=== PATIENT | female | born 1945 | race Caucasian/White ===

== ENCOUNTER 2017-08-30 11:43 | Emergency (ER) | payer MEDICARE, OTHER ==
[~2017-08-30] VITALS: Ht 167.6 cm; Wt 64.4 kg
--- NOTE | 2017-08-30 12:09 | ED Head Injury ---
General Chief Complaint: Head/Cervical Problems Stated Complaint: FALL/HEAD INJURY Source: patient, family Exam Limitations: no limitations History of Present Illness Date Seen by Provider: Aug 30, 2017 Time Seen by Provider: 12:05 Initial Comments Patient is a 70-year-old female who presents to the emergency room with complaints of a left sided head laceration from a fall just prior to arrival. She states that she was walking through her bed room and caught her foot on a rug causing her to trip and fall. She is unsure what she hit her head on the thinks it was the corner post on the bed frame. She is unsure if she had loss of consciousness but does not think she did. She does have a 4.5 centimeter laceration to the left side of her scalp just above her left ear. She denies any pain at this time. Occurred: just prior to arrival Severity: mild Location: parietal Method of Injury: fell Loss of Consciousness: unsure Associated Systoms: Denies Symptoms Allergies and Home Medications Allergies Coded Allergies: No Known Drug Allergies (Unverified , 08/30/17) Home Medications Aspirin 81 Mg Tablet.dr, 81 MG PO DAILY, (Reported) Patient Home Medication List Home Medication List Reviewed: Yes Review of Systems Constitutional: no symptoms reported, see HPI; No dizziness, No weakness Eyes: See HPI; Denies Blindness, Denies Blurred Vision, Denies Drainage, Denies Decreased Acuity Ears, Nose, Mouth, Throat: no symptoms reported Respiratory: see HPI; No cough, No dyspnea on exertion, No short of breath, No wheezing Cardiovascular: see HPI; No chest pain, No edema Gastrointestinal: see HPI; No abdominal pain, No constipation, No vomiting Genitourinary: see HPI; No decreased output, No discharge Musculoskeletal: see HPI; No back pain, No gout, No joint pain Skin: see HPI, other (laceration to the scalp) Psychiatric/Neurological: See HPI; Denies Anxiety, Denies Depressed Endocrine: See HPI; Denies Excessive Sweating, Denies Flushing Hematologic/Lymphatic: See HPI; Denies Anemia All Other Systems Reviewed Negative Unless Noted: Yes Past Ofdlvdz-Gkksid-Mpawky Hx Past Med/Social Hx: Reviewed Nursing Past Med/Soc Hx Patient Social History Recent Foreign Travel: No Contact w/Someone Who Travel: No Family Medical History Reviewed Nursing Family Hx Physical Exam Vital Signs Vital Signs - First Documented 08/30/17 08/30/17 11:55 14:03 Temp 97.1 Pulse 80 Resp 18 B/P (MAP) 139/69 (92) Pulse Ox 93 O2 Delivery Room Air Capillary Refill : Height, Weight, BMI Height: '" Weight: lbs. oz. kg; BMI Method: General Appearance: WD/WN, no apparent distress HEENT: PERRL/EOMI, normal ENT inspection, TMs normal, pharynx normal Neck: non-tender, full range of motion, supple, normal inspection Cardiovascular: regular rate, rhythm, no edema, no gallop, no JVD, no murmur Respiratory: chest non-tender, lungs clear, normal breath sounds, no respiratory distress, no accessory muscle use Gastrointestinal: normal bowel sounds, non tender, soft, no organomegaly, no pulsatile mass Back: normal inspection, no CVA tenderness, no vertebral tenderness Extremities: normal range of motion, non-tender, normal inspection, no pedal edema, no calf tenderness Psychiatric: alert, oriented x 3 Crainal Nerves: normal hearing, normal speech, PERRL Coordination/Gait: normal finger to nose, normal gait Motor/Sensory: no motor deficit, no sensory deficit Skin: normal color, other (there is a 4.5 cm linear laceration to the left side of the patient's head.) Rosio Coma Score Best Eye Response: (4) Open Spontaneously Best Verbal Response: (5) Oriented Best Motor Response: (6) Obeys Commands [place] Total: 15 Images 1 - Laceration 4.5 cm in length Procedures/Interventions Wound Location: Scalp Other Wound Location Left parietal scalp. Wound Length (cm): 4.5 Wound's Depth, Shape: superficial, linear Wound Explored: clean Irrigated w/ Saline (ccs): 200 Volume Anesthetic (ccs): 4 Wound Debrided: minimal Staple Repair: Stapler 35W (10 guero) Progress The area was anesthetized with approximate 4 mL of 1% lidocaine without epi. The area was then irrigated with approximately 200 mL of normal saline and Betasept. The area was closed with 10 guero. Progress/Results/Core Measures Results/Orders My Orders Medications Given in ED Vital Signs/I&O Progress Progress Note : Time: 13:31 Progress Note Patient reports that she is up-to-date on her tetanus vaccine. She was informed of a normal CT head and neck other than degenerative changes that she was aware of. She agrees with complains of discharge and return back to the emergency room for any concerns as needed and close follow-up with her physician. Diagnostic Imaging Diagonstic Imaging: CT Plain Films/CT/US/NM/MRI: c-spine, head Comments [facility] [place], [place] NAME: VIVIANE GOMEZ [facility] REC#: [id number] PT STATUS: REG ER : 1945 PHYSICIAN: BERTO VIVAR ADMIT DATE: 08/30/17/ER Draft Date of Exam:08/30/17 CT HEAD/CERVICAL SPINE WO PROCEDURE: CT head and CT cervical spine without contrast. TECHNIQUE: Multiple contiguous axial images were obtained through the brain and cervical spine without the use of intravenous contrast. Sagittal and coronal reformations through the cervical spine were then performed. INDICATION: Fall with head and neck injury. COMPARISON: No prior studies are available for comparison. CT HEAD: Ventricles and sulci are appropriate for the patient's age. There is some prominent CSF density along the frontal convexities bilaterally suggestive of mild bilateral frontal lobe atrophy. No sulcal effacement, midline shift, or hemorrhage is detected. The cisterns are patent. The visualized paranasal sinuses are clear. IMPRESSION: No acute intracranial process is detected. CT CERVICAL SPINE: There is mild reversal of the normal cervical lordotic curvature. There is minimal retrolisthesis of C4 on C5 and C5 on C6. Minimal anterolisthesis of C2 on C3 is seen. There is severe multilevel degenerative disc disease with significant disc space narrowing and marginal spurring from the C3-4 through the C6-7 levels. No definite fracture is identified. Odontoid is intact. IMPRESSION: Cervical spondylosis. No acute bony abnormality is detected. Dictated on workstation # [id number] Dict: 08/30/17 1244 Trans: 08/30/17 1251 [id number] Interpreted by: NANCY BALDWIN MD Electronically signed by: Reviewed: Reviewed by Me Departure Impression Primary Impression: Contusion of head Qualified Codes: S00.03XA - Contusion of scalp, initial encounter Additional Impression: Scalp laceration Qualified Codes: S01.01XA - Laceration without foreign body of scalp, initial encounter Disposition: HOME, SELF-CARE Condition: Stable/Unchanged Departure-Patient Inst. Decision time for Depature: 13:23 Referrals: DAVID BECERRIL MD (PCP/Family) Primary Care Physician Patient Instructions: Closed Head Injury, Head Injury Observation (DC), Laceration Repair With Guero (DC) Add. Discharge Instructions: Follow-up with your doctor within 1 week for recheck. Return back to the emergency room in 7-10 days for staple removal. Watch for signs of infection such as increased pain, redness, drainage. You may shower normally but do not take a bath, or submerge your head in any kind of body water. Return back to the emergency room for any signs of infection, increased pain, dizziness, confusion, nausea and vomiting. All discharge instructions reviewed with patient and/or family. Voiced understanding. BERTO VIVAR Aug 30, 2017 12:08
[2017-08-30] MEDS ORDERED: LIDOCAINE 1% INJ 20 ML 20 ML VIAL INJ ONE (12:15)
[2017-08-30] MEDS ORDERED: LOVA20TA2 (12:17)
[2017-08-30] MEDS ORDERED: ASPI-586 PO (12:17)
[2017-08-30] MEDS ORDERED: OMEP40CA36 (12:17)
[2017-08-30] MEDS ORDERED: SULF500T PO (12:17)
--- NOTE | 2017-08-30 12:51 | Diagnostic Imaging Report ---
PROCEDURE: CT head and CT cervical spine without contrast. TECHNIQUE: Multiple contiguous axial images were obtained through the brain and cervical spine without the use of intravenous contrast. Sagittal and coronal reformations through the cervical spine were then performed. INDICATION: Fall with head and neck injury. COMPARISON: No prior studies are available for comparison. CT HEAD: Ventricles and sulci are appropriate for the patient's age. There is some prominent CSF density along the frontal convexities bilaterally suggestive of mild bilateral frontal lobe atrophy. No sulcal effacement, midline shift, or hemorrhage is detected. The cisterns are patent. The visualized paranasal sinuses are clear. IMPRESSION: No acute intracranial process is detected. CT CERVICAL SPINE: There is mild reversal of the normal cervical lordotic curvature. There is minimal retrolisthesis of C4 on C5 and C5 on C6. Minimal anterolisthesis of C2 on C3 is seen. There is severe multilevel degenerative disc disease with significant disc space narrowing and marginal spurring from the C3-4 through the C6-7 levels. No definite fracture is identified. Odontoid is intact. IMPRESSION: Cervical spondylosis. No acute bony abnormality is detected. Dictated by: Dictated on workstation # [id number]
[2017-08-30] MEDS ORDERED: HYDROcodone/APAP 5 MG/325 MG (LORTAB) TAB PO ONE (14:00)
[2017-08-30 14:03] VITALS: BP 139/69
== END 2017-08-30 14:04 | disposition home or self-care (01) ==
LOC: ER 11:47
DX: S01.01XA Laceration without foreign body of scalp, initial encounter (principal); R40.2142 Coma scale, eyes open, spontaneous, at arrival to emergency department; R40.2252 Coma scale, best verbal response, oriented, at arrival to emergency department; R40.2362 Coma scale, best motor response, obeys commands, at arrival to emergency department; Z79.82 Long term (current) use of aspirin; W01.190A Fall on same level from slipping, tripping and stumbling with subsequent striking against furniture, initial encounter
CPT/HCPCS: 12002; 70450; 72125

== ENCOUNTER → 2017-11-18 | Outpatient (CLI) | payer MEDICARE ==
[~2017-11-18] MED LIST: ASPI-586 PO; LOVA20TA2; OMEP40CA36; SULF500T PO
[2017-11-18 08:32] LABS: BASOPHILS % (AUTO) 1 % (0-10); EOSINOPHILS # (AUTO) 0.2 10^3/uL (0.0-0.3); EOSINOPHILS % (AUTO) 4 % (0-10); HEMATOCRIT 40 % (35-52); HEMOGLOBIN 13.4 G/DL (11.5-16.0); LYMPHOCYTES # (AUTO) 1.3 X 10^3 (1.0-4.0); LYMPHOCYTES % (AUTO) 33 % (12-44); MEAN CORPUSCULAR HEMOGLOBIN 28 PG (25-34); MEAN CORPUSCULAR HGB CONC 33 G/DL (32-36); MEAN CORPUSCULAR VOLUME 83 FL (80-99); MEAN PLATELET VOLUME 9.6 FL (7.4-10.4); MONOCYTES # (AUTO) 0.6 X 10^3 (0.0-1.0); MONOCYTES % (AUTO) 14 % (0-12); NEUTROPHILS # (AUTO) 1.9 X 10^3 (1.8-7.8); NEUTROPHILS % (AUTO) 49 % (42-75); PLATELET COUNT 300 10^3/uL (130-400); RED BLOOD COUNT 4.85 10^6/uL (4.35-5.85); RED CELL DISTRIBUTION WIDTH 14.1 % (10.0-14.5)
[2017-11-18 08:57] LABS: ALANINE AMINOTRANSFERASE 30 U/L (0-55); ALBUMIN 3.9 GM/DL (3.2-4.5); ALKALINE PHOSPHATASE 54 U/L (40-136); BILIRUBIN,TOTAL 0.7 MG/DL (0.1-1.0); BUN/CREATININE RATIO 33; CALCIUM 9.5 MG/DL (8.5-10.1); CARBON DIOXIDE 24 MMOL/L (21-32); CHLORIDE 109 MMOL/L (98-107); CHOLESTEROL 144 MG/DL (< 200); CREATININE SERUM 0.58 MG/DL (0.60-1.30); GFR ESTIMATED > 60; GLUCOSE 104 MG/DL (70-105); HDL CHOLESTEROL 45 MG/DL (40-60); POTASSIUM 3.9 MMOL/L (3.6-5.0); SODIUM 141 MMOL/L (135-145); TOTAL PROTEIN 6.8 GM/DL (6.4-8.2); TRIGLYCERIDES 120 MG/DL (<150); VLDL CHOLESTEROL 24 MG/DL (5-40)
== END ==
LOC: LAB 08:15
PROVIDERS: ATTEND Nurse Practitioner Family
DX: E78.5 Hyperlipidemia, unspecified (principal); M81.0 Age-related osteoporosis without current pathological fracture; G35 Multiple sclerosis
CPT/HCPCS: 36415; 80053; 80061; 82306; 84443; 85025

== ENCOUNTER → 2018-04-14 | Outpatient (CLI) | payer MEDICARE ==
[2018-04-14 14:27] LABS: BASOPHILS % (AUTO) 0 % (0-10); EOSINOPHILS # (AUTO) 0.2 10^3/uL (0.0-0.3); EOSINOPHILS % (AUTO) 4 % (0-10); HEMATOCRIT 38 % (35-52); HEMOGLOBIN 12.5 G/DL (11.5-16.0); LYMPHOCYTES # (AUTO) 1.6 X 10^3 (1.0-4.0); LYMPHOCYTES % (AUTO) 33 % (12-44); MEAN CORPUSCULAR HEMOGLOBIN 28 PG (25-34); MEAN CORPUSCULAR HGB CONC 33 G/DL (32-36); MEAN CORPUSCULAR VOLUME 86 FL (80-99); MEAN PLATELET VOLUME 9.5 FL (7.4-10.4); MONOCYTES # (AUTO) 0.4 X 10^3 (0.0-1.0); MONOCYTES % (AUTO) 9 % (0-12); NEUTROPHILS # (AUTO) 2.7 X 10^3 (1.8-7.8); NEUTROPHILS % (AUTO) 54 % (42-75); PLATELET COUNT 285 10^3/uL (130-400); RED CELL DISTRIBUTION WIDTH 15.9 % (10.0-14.5); WHITE BLOOD COUNT 4.9 10^3/uL (4.3-11.0)
[2018-04-14 14:39] LABS: ALANINE AMINOTRANSFERASE 20 U/L (0-55); ALBUMIN 3.9 GM/DL (3.2-4.5); ALKALINE PHOSPHATASE 94 U/L (40-136); BILIRUBIN,TOTAL 0.2 MG/DL (0.1-1.0); BUN/CREATININE RATIO 35; CALCIUM 9.1 MG/DL (8.5-10.1); CARBON DIOXIDE 25 MMOL/L (21-32); CHLORIDE 110 MMOL/L (98-107); CREATINE KINASE 59 U/L (29-168); CREATININE SERUM 0.71 MG/DL (0.60-1.30); GFR ESTIMATED > 60; GLUCOSE 91 MG/DL (70-105); MAGNESIUM 2.4 MG/DL (1.8-2.4); SODIUM 142 MMOL/L (135-145); TOTAL PROTEIN 6.8 GM/DL (6.4-8.2)
[2018-04-14 14:45] LABS: CREATINE KINASE MB 0.8 NG/ML (<6.6)
== END ==
LOC: CARD 13:56
PROVIDERS: ATTEND Nurse Practitioner Family
DX: R07.9 Chest pain, unspecified (principal); M79.602 Pain in left arm
CPT/HCPCS: 36415; 80053; 82550; 82553; 83735; 84484; 85025; 93005

== ENCOUNTER → 2018-09-24 | Outpatient (CLI) | payer MEDICARE | LOC: RAD 14:48 | PROVIDERS: ATTEND Nurse Practitioner Family | DX: Z12.31 Encounter for screening mammogram for malignant neoplasm of breast (principal) | CPT/HCPCS: 77067 ==

== ENCOUNTER → 2019-04-14 | Outpatient (CLI) | payer MEDICARE ==
[~2019-04-14] MED LIST changes: +GADOBUTROL 10 MMOL/10 ML (GADAVIST) VIAL IV ONE; +OMEP40CA27; -OMEP40CA36
--- NOTE | 2019-04-14 10:55 | Diagnostic Imaging Report ---
Clinical indication: Patient with history multiple sclerosis since 1971. Patient's MRI double vision problems. Exam: MRI of the brain performed without and with 6 cc of Gadavist IV contrast. Sequences include axial DWI, ADC map, coronal gradient echo, axial T2, axial FLAIR, sagittal FLAIR, axial T1, axial T1 post IV contrast, coronal T1 fat-sat post IV contrast, and sagittal T1 post IV contrast. Comparison: Head CT without contrast dated 08/30/2017.. Findings: There is no evidence of acute cerebral infarct, intracranial hemorrhage, or gross mass effect. There is no abnormal contrast enhancement. The brain parenchymal volume appears appropriate for patient's age. There are multiple focal, patchy and ovoid areas of high T2 signal white matter changes involving the white matter posterior hemispheres, periventricular regions, and septal callosal regions. There is normal najera-white matter distinction. There is no significant midline shift or herniation. The [place] vascular structures show no gross abnormality as visualized. The pituitary gland, sella, and suprasellar regions are unremarkable as visualized. There is no evidence of hydrocephalus. The basal cisterns are unremarkable. The skull, extracranial soft tissue, and orbits are unremarkable. There is minimal mucosal thickening involving ethmoid sinus. Temporal bones show no significant abnormality. IMPRESSION: 1: There are multiple focal, patchy and ovoid areas of high T2 signal white matter changes involving both cerebral hemispheres, periventricular regions, and callosal septal regions. There is no associated IV contrast enhancement. The appearance and pattern of these high T2 signal lesions correlate to patient's history of multiple sclerosis. 2: Age-related brain parenchymal changes. Dictated by: Dictated on workstation # [id number]
== END ==
LOC: RAD 08:52
PROVIDERS: ATTEND Family Medicine
DX: G93.89 Other specified disorders of brain (principal); R90.82 White matter disease, unspecified; Z86.69 Personal history of other diseases of the nervous system and sense organs
CPT/HCPCS: 70553

== ENCOUNTER 2019-08-25 05:31 | Outpatient (RCR) | payer MEDICARE ==
[~2019-08-25] VITALS: Ht 162.6 cm; Wt 63.6 kg
[~2019-08-25 05:31] MED LIST changes: +ALEN70TA5 PO; +CHOL200014 PO; -GADOBUTROL 10 MMOL/10 ML (GADAVIST) VIAL IV ONE; +LEVO75TA6 PO; -LOVA20TA2; +LOVA20TA2 PO; +MAGN250T2 PO; -OMEP40CA27; +OMEP40CA27 PO
== END 2019-08-25 10:20 | disposition home or self-care (01) ==
LOC: PREOP 05:31
PROVIDERS: ATTEND Internal Medicine
DX: Z01.812 Encounter for preprocedural laboratory examination (principal); K51.80 Other ulcerative colitis without complications; Z20.828 Contact with and (suspected) exposure to other viral communicable diseases
CPT/HCPCS: 87635

== ENCOUNTER → 2019-08-28 | Day surgery (SDC) | payer MEDICARE ==
--- NOTE | 2019-08-17 09:49 | HISTORY AND PHYSICAL ---
DATE OF SERVICE: COLONOSCOPY HISTORY AND PHYSICAL HISTORY OF PRESENT ILLNESS: The patient is a 73-year-old white female presenting for diagnostic colonoscopy due to recent positive Cologuard. She has had past history of colonoscopies with polyp removal and was hoping to avoid another colonoscopy as long as her Cologuard was negative, but unfortunately this was not the case. She denies any change in bowel habits, abdominal pain, melena, bright red blood per rectum, change in weight, appetite or energy level. So she was surprised by her results. She came with pictures of her last colonoscopy done in 11/2016, which revealed unremarkable photos and she reports no polyps were found or removed at that time. She is not aware of any family history for colon cancer, but she does report a past history of ulcerative colitis for which she has not required medication for many years and for which there has been no evidence for inflammatory change on her last several colonoscopies. There is reported over 30-year history that presented without diarrhea, but did present with some mild tenesmus and rectal bleeding. She did not know the extent of her past inflammatory colonic changes. PAST MEDICAL HISTORY: Significant for Graves' disease, which required I-131 ablation in 09/2018. She is now on thyroid replacements. She has a history of osteoarthritis that she uses topical Voltaren gel for, hyperlipidemia with no known history for coronary artery disease and osteoporosis. MEDICATIONS ON ADMISSION: Include Voltaren gel topically 3 times a day, L-thyroxine 100 mcg daily, omeprazole 40 mg daily for reflux symptoms, magnesium 250 mg 2 tablets daily that she takes for constipation, Vitamin D 1000 units daily, lovastatin 20 mg daily, baby aspirin 81 mg daily, alendronate 70 mg daily. SOCIAL HISTORY: She has past [id number] smoking history, quit 10 years ago. She has no drinking history. She is retired and . FAMILY HISTORY: Father in his 70s secondary to a stroke. Mother of heart disease and hyperlipidemia and osteoporosis. Has one sister with history of hyperlipidemia and arthritis. Several other second degree relatives have had strokes. REVIEW OF SYSTEMS: CONSTITUTIONAL: She denies night sweats, chills, fever or change in weight. PULMONARY: She denies cough, wheezing, or shortness of breath. CARDIOVASCULAR: She denies dyspnea on exertion, orthopnea, PND, pedal edema or chest discomfort. GASTROINTESTINAL: As noted in the HPI. PHYSICAL EXAMINATION: GENERAL: Reveals a well-appearing white female in no acute distress. HEENT: Unremarkable. No evidence for pallor. VITAL SIGNS: Blood pressure 126/78, heart rate 70 and regular. CHEST: Clear to auscultation. CARDIOVASCULAR: Reveals a regular rate and rhythm without murmur, S3 or S4. ABDOMEN: Soft, supple without mass, organomegaly or tenderness. No bruits noted. EXTREMITIES: Reveal no cyanosis, clubbing or edema. ASSESSMENT AND PLAN: The patient was set up for diagnostic colonoscopy due to a positive Cologuard. Statistics in regards to neoplasia versus overt cancer and false negative issues were discussed with the patient. Her electronic medical record was reviewed. Over 45 minutes face to face care time spent. Prep instructions with the Suprep kit were given and questions were answered. I thank you for the referral of this pleasant lady. Job ID: [id number] DocumentID: [id number] Dictated Date: 08/06/2019 18:23:52 Insurance Broker Date: 08/06/2019 19:32:54 Dictated By: JEANINE GRAVES MD
[~2019-08-28] VITALS: Ht 162.6 cm; Wt 63.6 kg
[~2019-08-28] MED LIST changes: +D5 LR IV SOLUTION 1,000 ML IV ONE; +D5 LR IV SOLUTION 1,000 ML IV PRN; +LIDOCAINE JELLY 2% 6 ML SYRINGE MM PRN; +MIDAZOLAM 5 MG/5 ML (VERSED) VIAL IV PRN; +fentaNYL INJECTION 100 MCG/2 ML AMP IVP ONE; +proPOfol 200 MG/20 ML (DIPRIVAN) VIAL IV ONE
[2019-08-28 08:40] VITALS: BP 172/79
--- NOTE | 2019-08-28 08:57 | Pre-Op Note & Conscious Sedat ---
Pre-Operative Progress Note H&P Reviewed The H&P was reviewed, patient examined and no changes noted. Date H&P Reviewed: Aug 28, 2019 Time H&P Reviewed: 08:56 Conscious Sedation Pre-Proced ASA Score 2 For ASA 3 and 4: Consider anesthesia and medical clearance. Also, for patients with a history of failed moderate sedation consider anesthesia. Airway Lungs Heart ASA score ASA 1: a normal healthy patient ASA 2: a patient with a mild systemic disease (mid diabetes, controlled hypertension, obesity ASA 3: a patient with a severe systemic disease that limits activity (angina, COPD, prior Myocardial infarction) ASA 4: a patient with an incapacitating disease that is a constant threat to life (CHF, renal failure) ASA 5: a moribund patient not expected to survive 24 hrs. (ruptured aneurysm) ASA 6: a declared brain- patient whose organs are being harvested. For emergent operations, add the letter E after the classification Mallampati Classification Grade 2 Sedation Plan Analgesia, Amnesia, Plan communicated to team members, Discussed options with patient/fam, Discussed risks with patient/fam The patient is an appropriate candidate to undergo the planned procedure, sedation, and anesthesia. The patient immediately re-assessed prior to indication. JEANINE GRAVES MD Aug 28, 2019 08:57
[2019-08-28 10:30] VITALS: BP 131/65
[2019-08-28 10:35] VITALS: BP 146/62
--- NOTE | 2019-08-28 10:50 | Anesthesia-General Post-Op ---
MAC Patient Condition Mental Status/LOC: Same as Preop Cardiovascular: Satisfactory Nausea/Vomiting: Absent Respiratory: Satisfactory Pain: Controlled Complications: Absent Post Op Complications Complications None Follow Up Care/Instructions Patient Instructions None needed. Anesthesiology Discharge Order Discharge Order Patient is doing well, no complaints, stable vital signs, no apparent adverse anesthesia problems. ORIANA HERNANDEZ DO Aug 28, 2019 10:50
--- OUTSIDE RECORDS SUMMARY | 2019-08-28 12:37 | XMS REPORT ---
Author Author Delia WHATLEY Organization [facility] Address [address] [place] [address] Care Team Providers Care Testing Manager Name Role Phone MANUEL WHATLEY Unavailable PROBLEMS Unknown Problems ALLERGIES No Known Allergies ENCOUNTERS Encounter Location Date Diagnosis [facility] [address] [facility] [id number] [place] [address] Apr, Sore throat J02.9 and Nasoph aryngitis acute J00 IMMUNIZATIONS No Known Immunizations SOCIAL HISTORY Never Assessed REASON FOR VISIT sore throat/ear ache Pt c/o scratchy throat for a couple of day and L ear irrit ation as well, states she has been exposed to strep ARIELA Santana PLAN OF CARE Activity Details Follow Up prn Reason: VITAL SIGNS Weight 145.0 lbs 2017-05-15 Temperature 98.9 degrees Fahrenheit 2017-05-15 Heart Rate 76 bpm 2017-05-15 Respiratory Rate 18 2017-05-15 Blood pressure systolic 124 mmHg 2017-05-15 Blood pressure diastolic 76 mmHg 2017-05-15 MEDICATIONS Medication Instructions Dosage Frequency Start Date End Date Duration S tatus Lovastatin 10 MG Orally Once a day 1 tablet with a meal 24h Active Aspirin 81 81 MG Orally Once a day 1 tablet 24h Active Multivitamin Adult - Act torres RESULTS Name Result Date Reference Range STREP A (IN HOUSE) 2017-05-15 STREP A negative Control + Lot # [id number] Exp date 2019-11-30 PROCEDURES Procedure Date Ordered Result Body Site STREP A ASSAY W/OPTIC May 15, 2017 INSTRUCTIONS MEDICATIONS ADMINISTERED No Known Medications
--- OUTSIDE RECORDS SUMMARY | 2019-08-28 12:37 | XMS REPORT | CCD ---
Author Author Delia Cintron Organization Palua Cintron MD, [facility] Address [address] [place] [address] Phone Care Team Providers Care Legislative Advocate Name Role Phone PP Unavailable CCM Unavailable Summary Purpose Interface Exchange Insurance Providers Payer name Policy type / Coverage type Covered republican ID Effective Begin Date Effective End Date [employer] Commercial Insurance [id number] 2017 Unknown Family history Father Diagnosis Age At Onset Stroke Unknown Mother Diagnosis Age At Onset Hyperlipidemia Unknown Arthritis Unknown Osteoporosis Unknown Sister Diagnosis Age At Onset Hyperlipidemia Unknown Arthritis Unknown Social History Social History Element Codes Description Effective Dates Marital status Unknown W idowed 08/06/[address]: 6858293 Quit over 10 years ago 08/06/[address]: 491996985 Never drinks alcohol 08/06/2017 Allergies, Adverse Reactions, Alerts Substance Reaction Codes Entered Date Inactivated Date Status * NO KNOWN DRUG ARIANA RGIES Unknown 11/26/2017 No Inactive Date Active Past Medical History Illness Codes Condition Status Onset Date Resolved Date Encounter for genera l adult medical examination without abnormal findings ICD-9: V70.9 ICD-10: Z00.00 Active 04/14/2018 Unknown Other chest pain ICD-9: 786.59 ICD-10: R07.89 Active 04/14/2018 Unknown Pain in left arm ICD-9: 729.5 ICD-10: M79.602 Active 04/14/2018 Unknown Age-related osteopor osis without current pathological fracture ICD-9: 733.00 ICD-10: M81.0 Active 08/06/2017 Unknown Chronic thyroiditis with transient thyrotoxicosis ICD-9: 245.8 ICD-10: E06.2 Active 11/26/2017 Unknown Mixed hyperlipidemia ICD-9: 272.2 ICD-10: E78.2 Active 08/06/2017 Unknown Obstructive sleep ap cynthia (adult) (pediatric) ICD-9: 327.23 ICD-10: G47.33 Active 08/06/2017 Unknown Localized edema ICD-9: 782.3 ICD-10: R60.0 Active 10/08/2017 Unknown Multiple sclerosis ICD- 9: 340 ICD-10: G35 Active 10/08/2017 Unknown Concussion with loss of consciousness of 30 minutes or less, initial encounter ICD-9: 850.11 ICD-10: S06.0X1A Active 09/10/2017 Unknown Encounter for remova l of sutures ICD-9: V58.32 ICD-10: Z48.02 Active 09/10/2017 Unknown Laceration without f oreign body of scalp, initial encounter ICD-9: 873.0 ICD-10: S01.01XA Active 09/10/2017 Unknown Problems Condition Codes Effectiv e Dates Condition Status Encounter for genera l adult medical examination without abnormal findings ICD-9: V70.9 ICD-10: Z00.00 04/14/2018 Active Other chest pain ICD-9: 786.59 ICD-10: R07.89 04/14/2018 Active Pain in left arm ICD-9: 729.5 ICD-10: M79.602 04/14/2018 Active Age-related osteopor osis without current pathological fracture ICD-9: 733.00 ICD-10: M81.0 08/06/2017 Active Chronic thyroiditis with transient thyrotoxicosis ICD-9: 245.8 ICD-10: E06.2 11/26/2017 Active Mixed hyperlipidemia ICD-9: 272.2 ICD-10: E78.2 08/06/2017 Active Obstructive sleep ap cynthia (adult) (pediatric) ICD-9: 327.23 ICD-10: G47.33 08/06/2017 Active Localized edema ICD-9: 782.3 ICD-10: R60.0 10/08/2017 Active Multiple sclerosis ICD- 9: 340 ICD-10: G35 10/08/2017 Active Concussion with loss of consciousness of 30 minutes or less, initial encounter ICD-9: 850.11 ICD-10: S06.0X1A 09/10/2017 Active Encounter for remova l of sutures ICD-9: V58.32 ICD-10: Z48.02 09/10/2017 Active Laceration without f oreign body of scalp, initial encounter ICD-9: 873.0 ICD-10: S01.01XA 09/10/2017 Active Medications Medication Codes Instruc tions Start Date Stop Date Sta tus Fill Instructions omeprazole 40 mg cap shireen,delayed release RxNorm: 20020329 1 Capsule(s) PO BID 08/04/2018 07/29/2019 Ac tive lovastatin 20 mg tablet RxNorm: 937918 1 Tablet(s) PO daily 08/04/2018 07/29/2019 Active alendronate 70 mg ta blet RxNorm: 304594 1 Tablet(s) PO QW 08/04/2018 07/29/2019 Active prednisone 20 mg tablet RxNorm: 447493 2 Tablet(s) PO daily 10/08/2017 10/12/2017 Inactive alendronate 70 mg ta blet RxNorm: 529824 1 Tablet(s) PO QW 09/10/2017 08/03/2018 Inactive omeprazole 40 mg cap shireen,delayed release RxNorm: 282183 1 Capsule(s) PO BID 09/10/2017 08/03/2018 In active methimazole 10 mg ta blet RxNorm: 735352 2 Tablet(s) PO daily managed by endocrinology No Start Date Active magnesium 250 mg tablet RxNorm: 2 Tablet(s) PO daily No Start Date Active Multiple Vitamin-Min erals tablet RxNorm: 1 Tablet(s) PO daily No Start Date Active Vitamin D3 1,000 uni t tablet RxNorm: 597194 1 Tablet(s) PO daily No Start Date Active aspirin 81 mg tablet ,delayed release RxNorm: 476734 1 Tablet(s) PO daily No Start Date Active omeprazole 40 mg cap shireen,delayed release RxNorm: 380813 1 Capsule(s) PO daily No Start Date 09/09/2017 Inactive propranolol 80 mg ta blet RxNorm: 771494 1 Tablet(s) PO daily managed by cardiology No Start Date 08/03/2018 Inactive lovastatin 20 mg tablet RxNorm: 639287 1 Tablet(s) PO daily No Start Date 08/03/2018 Inactive alendronate 70 mg ta blet RxNorm: 946276 1 Tablet(s) PO QW No Start Date 09/09/2017 Inactive Medication Administered No Medication Administered data Immunizations Vaccine Codes Date Status Influenza CVX: 141 02/06 completed Assessments Condition Codes Effectiv e Dates Other chest pain ICD-10: R07.89 ICD-9: 786.59 04/14/2018 Pain in left arm ICD-10: M79.602 ICD-9: 729.5 04/14/2018 Encounter for general adult medical exam ination without abnormal findings ICD-10: Z00.00 ICD-9: V70.9 04/14/2018 Chronic thyroiditis with transient thyrotoxicosis ICD-10: E06.2 ICD-9: 245.8 02/12/2018 Mixed hyperlipidemia ICD-10: E78.2 ICD-9: 272.2 02/12/2018 Localized edema ICD-10: R60.0 ICD-9: 782.3 10/08/2017 Multiple sclerosis ICD-10: G35 ICD-9: 340 10/08/2017 Concussion with loss of consciousness of 30 minutes or less, initial encounter ICD-10: S06.0X1A ICD-9: 850.11 09/10/2017 Laceration without foreign body of scalp, initial enco unter ICD-10: S01.01XA ICD-9: 873.0 09/10/2017 Encounter for removal of sutures ICD -10: Z48.02 ICD-9: V58.32 09/10/2017 Obstructive sleep apnea (adult) (pediatric) ICD-10: G47.33 ICD-9: 327.23 08/06/2017 Age-related osteoporosis without current pathological fracture ICD-10: M81.0 ICD-9: 733.00 08/06/2017 Reason For Visit Reason For Visit Effective Dates Notes arm pain 04/14/2018 hyperlipidemia 02/12/2018 hyperthyroidism 11/26/2017 shortness of breath 10/08/2017 Hospital Follow Up 09/10/2017 ~generic 08/06/2017 [facility] Results Observation Observation Code Item Item Code Result Date Thyroid Antibodies 303447 THYROGLOBULIN ANTIBODY . 11/27/2017 Thyroid Antibodies 901946 THYROGLOBULIN ANTIBODY 11 IU/mL 11/27/2017 Thyroid Antibodies 923264 THYROID PEROXIDASE (TPO) AB . 11/27/2017 Thyroid Antibodies 187177 THYROID PEROXIDASE (TPO) AB 155 IU/mL 11/27/2017 Tsh Ord6 TSH (3rd IS) 0.00 uIU/mL 11/25/2017 Free T4 Qht763 FREE T4 3.45 ng/dL 11/25/2017 Vitamin D 25 Oh [id number] VITAMIN D, 25 HYDROXY 42.13 ng/mL 08/06/2017 Review of Systems System Result Effective Dates Constitutional No recent illness 04/14/2018 Constitutional No chills 04/14/2018 Constitutional No fever 04/14/2018 Eyes No eye erythema Ears/Nose/Throat/Neck No nasal discharge 04/14/2018 Cardiovascular chest pain/pressure 04/14/2018 Cardiovascular No dyspnea 04/14/2018 Respiratory No cough Respiratory No dyspnea 0 04/14/2018 Musculoskeletal joint complaint 04/14/2018 Neurologic No alteration of consciousness 04/14/2018 Neurologic No mental status change 04/14/2018 Gastrointestinal gastroesophageal reflux 04/14/2018 Constitutional No recent illness 02/12/2018 Constitutional No chills 02/12/2018 Constitutional No malaise 02/12/2018 Eyes No vision change Gastrointestinal No abdominal pain 02/12/2018 Gastrointestinal No constipation 02/12/2018 Gastrointestinal No diarrhea 02/12/2018 Gastrointestinal No gastroesophageal reflu x 02/12/2018 Gastrointestinal No nausea 02/12/2018 Gastrointestinal No vomiting 02/12/2018 Constitutional No fever 02/12/2018 Constitutional No diaphoresis 02/12/2018 Ears/Nose/Throat/Neck No nasal allergies 02/12/2018 Ears/Nose/Throat/Neck No nasal discharge 02/12/2018 Cardiovascular No chest pain/pressure 02/12/2018 Cardiovascular No dyspnea 02/12/2018 Respiratory No dyspnea 1 04/15/2017 Respiratory No cough Respiratory No chest congestion 02/12/2018 Musculoskeletal No joint complaint 02/12/2018 Dermatologic No rash Neurologic No alteration of consciousness 02/12/2018 Neurologic No mental status change 02/12/2018 Constitutional recent illness 11/26/2017 Constitutional No anorexia 11/26/2017 Constitutional night sweats 11/26/2017 Constitutional No chills 11/26/2017 Constitutional No diaphoresis 11/26/2017 Constitutional fatigue 1 Constitutional No fever 11/26/2017 Constitutional No insomnia 11/26/2017 Constitutional No malaise 11/26/2017 Constitutional weight loss 11/26/2017 Constitutional No weight gain 11/26/2017 Eyes No eye discharge Eyes No eye erythema 10/2017 Ears/Nose/Throat/Neck No dizziness 11/26/2017 Ears/Nose/Throat/Neck No headache 11/26/2017 Cardiovascular No chest pain/pressure 11/26/2017 Cardiovascular exercise intolerance 11/26/2017 Cardiovascular fatigue 1 Cardiovascular palpitations 11/26/2017 Respiratory No productive sputum 11/26/2017 Respiratory dyspnea on exertion 11/26/2017 Gastrointestinal No abdominal pain 11/26/2017 Gastrointestinal No constipation 11/26/2017 Gastrointestinal No diarrhea 11/26/2017 Genitourinary/Nephrology No dysuria 11/26/2017 Musculoskeletal No joint complaint 11/26/2017 Dermatologic No rash 10/2017 Neurologic No alteration of consciousness 11/26/2017 Psychiatric No depression 11/26/2017 Endocrine No dry or coarse skin 11/26/2017 Endocrine sweating 11/26 Constitutional No recent illness 10/08/2017 Constitutional fatigue 0 10/08/2017 Psychiatric No anxiety 0 10/08/2017 Gastrointestinal No abdominal pain 10/08/2017 Gastrointestinal No constipation 10/08/2017 Gastrointestinal No diarrhea 10/08/2017 Dermatologic No rash Dermatologic No sores Neurologic weakness 09/19 Constitutional No recent illness 08/06/2017 Constitutional No chills 08/06/2017 Constitutional No fatigue 08/06/2017 Constitutional No fever 08/06/2017 Constitutional No insomnia 08/06/2017 Constitutional No malaise 08/06/2017 Eyes No vision change Ears/Nose/Throat/Neck No dental pain 08/06/2017 Ears/Nose/Throat/Neck No dizziness 08/06/2017 Ears/Nose/Throat/Neck No dysphagia 08/06/2017 Ears/Nose/Throat/Neck No headache 08/06/2017 Ears/Nose/Throat/Neck No hearing loss 08/06/2017 Ears/Nose/Throat/Neck No nasal allergies 08/06/2017 Ears/Nose/Throat/Neck No sore throat 08/06/2017 Ears/Nose/Throat/Neck No postnasal drip 08/06/2017 Ears/Nose/Throat/Neck No sinus congestion 08/06/2017 Cardiovascular No chest pain/pressure 08/06/2017 Cardiovascular No dyspnea 08/06/2017 Cardiovascular No edema 08/06/2017 Cardiovascular No exercise intolerance 08/06/2017 Cardiovascular No fatigue 08/06/2017 Cardiovascular No near-syncope/dizziness 08/06/2017 Respiratory No chest tightness 08/06/2017 Respiratory No cough Respiratory No dyspnea 0 08/06/2017 Respiratory No pedal edema 08/06/2017 Gastrointestinal No abdominal pain 08/06/2017 Gastrointestinal No constipation 08/06/2017 Gastrointestinal No diarrhea 08/06/2017 Gastrointestinal No gastroesophageal reflu x 08/06/2017 Gastrointestinal No nausea 08/06/2017 Gastrointestinal No vomiting 08/06/2017 Genitourinary/Nephrology No dysuria 08/06/2017 Genitourinary/Nephrology No nocturia 08/06/2017 Genitourinary/Nephrology No urinary incontinence 08/06/2017 Musculoskeletal No stiffness 08/06/2017 Musculoskeletal No swelling 08/06/2017 Musculoskeletal No muscle weakness 08/06/2017 Musculoskeletal No myalgias 08/06/2017 Dermatologic No rash Dermatologic No sores Neurologic No dizziness 08/06/2017 Neurologic No headache 0 08/06/2017 Neurologic No neck pain 08/06/2017 Neurologic No syncope Psychiatric No anxiety 0 08/06/2017 Psychiatric No depression 08/06/2017 Physical Exam Exam Name System Name It em Name Status Result Effective Dates Notes Full Exam - Orthopedics Constitutional general appearance Overall: well nourished 04/14/2018 None Full Exam - Orthopedics Constitutional general appearance Overall: well developed 04/14/2018 None Full Exam - Orthopedics Constitutional general appearance Overall: in no acute distress 04/14/2018 None Full Exam - Orthopedics Eyes conjunctiva/eyelids Overall: conjunctiva clear 04/14/2018 None Full Exam - Orthopedics Eyes conjunctiva/eyelids Overall: eyelids normal 04/14/2018 None Full Exam - Orthopedics Ears/Nose/Throat lips/teeth/gingiva Overall: benign lips 04/14/2018 None Full Exam - Orthopedics Ears/Nose/Throat oral cavity/pharynx/larynx Overall: oral mucosa clear 04/14/2018 None Full Exam - Orthopedics Respiratory respiratory effort/rhythm Overall: no retractions 04/14/2018 None Full Exam - Orthopedics Respiratory respiratory effort/rhythm Overall: normal rate 04/14/2018 None Full Exam - Orthopedics Psychiatric orientation/consciousness Overall: oriented to person, place and time 04/14/2018 None Full Exam - Orthopedics Psychiatric mood and affect Overall: normal mood and affect 04/14/2018 None Full Exam - Orthopedics Psychiatric appearance Overall: well-groomed, good eye contact 04/14/2018 None Full Exam - Orthopedics MS: head/neck insp & palp - H/N Overall: head atraumatic 04/14/2018 None Full Exam - Orthopedics MS: left upp er extremity insp & palp - LUE Upper arm: normal appearance 04/14/2018 None Full Exam - General 1994 Constitutional general appearance Hygiene/Attention to Grooming: good hygiene 02/12/2018 None Full Exam - General 1994 Eyes conjunctiva/eyelids Overall: conjunctiva clear 02/12/2018 None Full Exam - General 1994 Eyes conjunctiva/eyelids Overall: cornea clear 02/12/2018 None Full Exam - General 1994 Eyes conjunctiva/eyelids Overall: eyelids normal 02/12/2018 None Full Exam - General 1994 Eyes pupils and irises Overall: pupils equal, round, reactive to light and accomodation 02/12/2018 None Full Exam - General 1994 Ears/Nose/Throat otoscopic exam Overall: external auditory canals clear 02/12/2018 None Full Exam - General 1994 Ears/Nose/Throat otoscopic exam Overall: tympanic membranes clear 02/12/2018 None Full Exam - General 1994 Ears/Nose/Throat lips/teeth/gingiva Overall: benign lips 02/12/2018 None Full Exam - General 1994 Ears/Nose/Throat oral cavity/pharynx/larynx Overall: oral mucosa clear 02/12/2018 None Full Exam - General 1994 Ears/Nose/Throat oral cavity/pharynx/larynx Overall: oropharyngeal mucosa clear 02/12/2018 None Full Exam - General 1994 Respiratory auscultation Overall: breath sounds clear bilaterally 02/12/2018 None Full Exam - General 1994 Respiratory respiratory effort/rhythm Overall: no retractions 02/12/2018 None Full Exam - General 1994 Respiratory respiratory effort/rhythm Overall: normal rate 02/12/2018 None Full Exam - General 1994 Cardiovascular extremities Overall: no clubbing 02/12/2018 None Full Exam - General 1994 Cardiovascular auscultation of heart Overall: regular rate 02/12/2018 None Full Exam - General 1994 Cardiovascular auscultation of heart Overall: normal heart sounds 02/12/2018 None Full Exam - General 1994 Abdomen abdominal exam Overall: no tenderness 02/12/2018 None Full Exam - General 1994 Abdomen abdominal exam Overall: normal bowel sounds 02/12/2018 None Full Exam - General 1994 Lymphatic neck nodes Overall: anterior cervical chain benign 02/12/2018 None Full Exam - General 1994 Lymphatic neck nodes Overall: posterior cervical chain benign 02/12/2018 None Full Exam - General 1994 Musculoskeletal spine, ribs and pelvis Overall: good posture 02/12/2018 None Full Exam - General 1994 Musculoskeletal head and neck Overall: head atraumatic 02/12/2018 None Full Exam - General 1994 Neurologic cranial nerves Overall: crainial nerves 2 - 12 grossly intact 02/12/2018 None Full Exam - General 1994 Psychiatric orientation/consciousness Overall: oriented to person, place and time 02/12/2018 None Full Exam - General 1994 Psychiatric mood and affect Overall: normal mood and affect 02/12/2018 None Full Exam - General 1994 Constitutional general appearance Overall: well developed 02/12/2018 None Full Exam - General 1994 Constitutional general appearance Overall: in no acute distress 02/12/2018 None Full Exam - General 1994 Constitutional general appearance Overall: well nourished 02/12/2018 None Full Exam - General 1994 Musculoskeletal gait and station Overall: normal station 02/12/2018 None Full Exam - General 1994 Musculoskeletal gait and station Overall: normal gait 02/12/2018 None Full Exam - General 1994 Constitutional general appearance Development: well developed 11/26/2017 None Full Exam - General 1994 Constitutional general appearance Development: appears stated age 1011/26/2017 None Full Exam - General 1994 Respiratory auscultation Overall: breath sounds clear bilaterally 11/26/2017 None Full Exam - General 1994 Respiratory respiratory effort/rhythm Overall: no retractions 11/26/2017 None Full Exam - General 1994 Respiratory respiratory effort/rhythm Overall: normal rate 11/26/2017 None Full Exam - General 1994 Cardiovascular extremities Overall: no clubbing 11/26/2017 None Full Exam - General 1994 Cardiovascular auscultation of heart Overall: regular rate 11/26/2017 None Full Exam - General 1994 Cardiovascular auscultation of heart Overall: normal heart sounds 11/26/2017 None Full Exam - General 1994 Cardiovascular auscultation of heart Overall: no murmurs 11/26/2017 None Full Exam - General 1994 Abdomen abdominal exam Overall: no tenderness 11/26/2017 None Full Exam - General 1994 Abdomen abdominal exam Overall: normal bowel sounds 11/26/2017 None Full Exam - General 1994 Musculoskeletal gait and station Overall: normal gait 11/26/2017 None Full Exam - General 1994 Musculoskeletal gait and station Overall: normal station 11/26/2017 None Full Exam - General 1994 Neurologic gait Overall: no ataxia, no unsteadiness 11/26/2017 None Full Exam - General 1994 Neurologic cranial nerves Overall: crainial nerves 2 - 12 grossly intact 11/26/2017 None Full Exam - General 1994 Psychiatric orientation/consciousness Overall: oriented to person, place and time 11/26/2017 None Full Exam - General 1994 Psychiatric mood and affect Overall: normal mood and affect 11/26/2017 None Full Exam - General 1994 Psychiatric mood and affect Mood: happy 11/26/2017 None Full Exam - General 1994 Ears/Nose/Throat otoscopic exam Overall: external auditory canals clear 11/26/2017 None Full Exam - General 1994 Integument inspection of skin Overall: few scattered moles, no gross abnormalities 11/26/2017 None Full Exam - General 1994 Neck thyroid Size: enlarged right lobe 11/26/2017 None Full Exam - General 1994 Constitutional general appearance Development: well developed 10/08/2017 None Full Exam - General 1994 Constitutional general appearance Development: appears stated age 0810/08/2017 None Full Exam - General 1994 Respiratory auscultation Overall: breath sounds clear bilaterally 10/08/2017 None Full Exam - General 1994 Respiratory respiratory effort/rhythm Overall: normal rate 10/08/2017 None Full Exam - General 1994 Respiratory respiratory effort/rhythm Overall: no retractions 10/08/2017 None Full Exam - General 1994 Cardiovascular auscultation of heart Overall: regular rate 10/08/2017 None Full Exam - General 1994 Cardiovascular auscultation of heart Overall: normal heart sounds 10/08/2017 None Full Exam - General 1994 Cardiovascular auscultation of heart Overall: no murmurs 10/08/2017 None Full Exam - General 1994 Cardiovascular extremities Overall: no clubbing 10/08/2017 None Full Exam - General 1994 Psychiatric orientation/consciousness Overall: oriented to person, place and time 10/08/2017 None Full Exam - General 1994 Psychiatric mood and affect Mood: happy 10/08/2017 None Full Exam - General 1994 Psychiatric mood and affect Overall: normal mood and affect 10/08/2017 None Full Exam - General 1994 Neurologic cranial nerves Overall: crainial nerves 2 - 12 grossly intact 10/08/2017 None Full Exam - General 1994 Neurologic gait Overall: no ataxia, no unsteadiness 10/08/2017 None Full Exam - General 1994 Abdomen abdominal exam Overall: no tenderness 10/08/2017 None Full Exam - General 1994 Abdomen abdominal exam Overall: normal bowel sounds 10/08/2017 None Full Exam - General 1994 Musculoskeletal gait and station Overall: normal station 10/08/2017 None Full Exam - General 1994 Musculoskeletal gait and station Overall: normal gait 10/08/2017 None Full Exam - General 1994 Cardiovascular extremities Edema present: pitting 10/08/2017 trace Full Exam - General 1994 Constitutional general appearance Development: well developed 08/06/2017 None Full Exam - General 1994 Constitutional general appearance Development: appears stated age 0608/06/2017 None Full Exam - General 1994 Constitutional general appearance Hygiene/Attention to Grooming: good hygiene 08/06/2017 None Full Exam - General 1994 Eyes conjunctiva/eyelids Overall: conjunctiva clear 08/06/2017 None Full Exam - General 1994 Eyes conjunctiva/eyelids Overall: cornea clear 08/06/2017 None Full Exam - General 1994 Eyes conjunctiva/eyelids Overall: eyelids normal 08/06/2017 None Full Exam - General 1994 Eyes pupils and irises Overall: pupils equal, round, reactive to light and accomodation 08/06/2017 None Full Exam - General 1994 Ears/Nose/Throat otoscopic exam Overall: external auditory canals clear 08/06/2017 None Full Exam - General 1994 Ears/Nose/Throat otoscopic exam Overall: tympanic membranes clear 08/06/2017 None Full Exam - General 1994 Ears/Nose/Throat lips/teeth/gingiva Overall: benign lips 08/06/2017 None Full Exam - General 1994 Ears/Nose/Throat lips/teeth/gingiva Overall: normal dentition 08/06/2017 None Full Exam - General 1994 Ears/Nose/Throat oral cavity/pharynx/larynx Overall: oral mucosa clear 08/06/2017 None Full Exam - General 1994 Ears/Nose/Throat oral cavity/pharynx/larynx Overall: oropharyngeal mucosa clear 08/06/2017 None Full Exam - General 1994 Ears/Nose/Throat oral cavity/pharynx/larynx Overall: hypopharynx benign 08/06/2017 None Full Exam - General 1994 Ears/Nose/Throat oral cavity/pharynx/larynx Overall: no masses 08/06/2017 None Full Exam - General 1994 Respiratory auscultation Overall: breath sounds clear bilaterally 08/06/2017 None Full Exam - General 1994 Respiratory respiratory effort/rhythm Overall: no retractions 08/06/2017 None Full Exam - General 1994 Respiratory respiratory effort/rhythm Overall: normal rate 08/06/2017 None Full Exam - General 1994 Cardiovascular extremities Overall: no clubbing 08/06/2017 None Full Exam - General 1994 Cardiovascular auscultation of heart Overall: regular rate 08/06/2017 None Full Exam - General 1994 Cardiovascular auscultation of heart Overall: normal heart sounds 08/06/2017 None Full Exam - General 1994 Abdomen abdominal exam Overall: no tenderness 08/06/2017 None Full Exam - General 1994 Abdomen abdominal exam Overall: normal bowel sounds 08/06/2017 None Full Exam - General 1994 Lymphatic neck nodes Overall: anterior cervical chain benign 08/06/2017 None Full Exam - General 1994 Lymphatic neck nodes Overall: posterior cervical chain benign 08/06/2017 None Full Exam - General 1994 Musculoskeletal spine, ribs and pelvis Overall: spine benign 08/06/2017 None Full Exam - General 1994 Musculoskeletal spine, ribs and pelvis Overall: sacroiliac joint benign 08/06/2017 None Full Exam - General 1994 Musculoskeletal spine, ribs and pelvis Overall: good posture 08/06/2017 None Full Exam - General 1994 Musculoskeletal head and neck Overall: head atraumatic 08/06/2017 None Full Exam - General 1994 Musculoskeletal head and neck Overall: cervical spine benign 08/06/2017 None Full Exam - General 1994 Integument inspection of skin Overall: few scattered moles, no gross abnormalities 08/06/2017 None Full Exam - General 1994 Neurologic deep tendon reflexes Overall: deep tendon reflexes intact 08/06/2017 None Full Exam - General 1994 Neurologic cranial nerves Overall: crainial nerves 2 - 12 grossly intact 08/06/2017 None Full Exam - General 1994 Psychiatric orientation/consciousness Overall: oriented to person, place and time 08/06/2017 None Full Exam - General 1994 Psychiatric mood and affect Overall: normal mood and affect 08/06/2017 None Procedures No Procedures data Vital Signs Date Vital 04/14/2018 Blood Pressure 1: 110/48 Code: 8480-6 BMI: 22.4 Code: 76845-0 Heart Rate 1: 70 bpm Height: 5'6" SpO2: 98% Weight: 139 lbs 02/12/2018 Blood Pressure 1: 130/72 Code: 8480-6 BMI: 21.6 Code: 53181-5 Heart Rate 1: 88 bpm Height: 5'6" SpO2: 98% Weight: 134 lbs 11/26/2017 Blood Pressure 1: 140/72 Code: 8480-6 BMI: 21.6 Code: 05299-7 Heart Rate 1: 96 bpm Height: 5'6" SpO2: 97% Weight: 134 lbs 10/08/2017 Blood Pressure 1: 160/86 Code: 8480-6 Blood Pressure 1: 142/64 Code: 8480-6 Blood Pressure 1: 132/68 Code: 8480-6 BMI: 23.1 Code: 25876-6 Heart Rate 1: 99 bpm Height: 5'6" SpO2: 94% Weight: 143 lbs 09/10/2017 Blood Pressure 1: 128/88 Code: 8480-6 BMI: 22.9 Code: 54347-0 Heart Rate 1: 84 bpm Height: 5'6" SpO2: 95% Weight: 142 lbs 08/06/2017 Blood Pressure 1: 134/74 Code: 8480-6 BMI: 23.4 Code: 02425-2 Heart Rate 1: 68 bpm Height: 5'6" Weight: 145 lbs Functional Status No Functional Status data History of Present Illness Symptom Name Status Resu lt Effective Date Notes Location left arm 04/14/2018 None Quality dull pain 04/14/2018 None Quality constant 04/14/2018 None Onset and Resolution g radual in onset 04/14/2018 None Onset of Symptom 2 wee ks ago 04/14/2018 None Frequency of Episodes daily 04/14/2018 None Onset and Resolution o ngoing 02/12/2018 None Onset of Symptom durin g adulthood 02/12/2018 None Severity moderate 02/12/2018 None Quality chronic 02/12/2018 None Significant Family History hyperlipidemia 02/12/2018 None Quality chronic 02/12/2018 None Onset and Resolution o ngoing 02/12/2018 None abnormal test results Abnormal Indicator abnormal 11/26/2017 None abnormal test results Repeated Abnor mal Results 1 11/26/2017 None abnormal test results Type of Test(s) TSH, Free T4 11/26/2017 None abnormal test results Test Performed on 11/18/17 and 11/25/17 11/26/2017 None hyperthyroidism Location at the level of the thyroid 11/26/2017 None hyperthyroidism Quality acute 11/26/2017 None hyperthyroidism Quality worsening 11/26/2017 None hyperthyroidism Onset and Resolution ongoing 11/26/2017 None hyperthyroidism Severity moderate with clinical signs present 11/26/2017 None hyperthyroidism Frequency of Episodes increasing 11/26/2017 None hyperthyroidism Triggers no known associated factors 11/26/2017 None hyperthyroidism Pertinent Findings Denies diplopia 11/26/2017 None hyperthyroidism Pertinent Findings Denies hair loss 11/26/2017 None hyperthyroidism Pertinent Findings palpitations 11/26/2017 None hyperthyroidism Pertinent Findings weight loss 11/26/2017 None shortness of breath Quality breathlessness 10/08/2017 None shortness of breath Onset and Resolution sudden in onset 10/08/2017 None shortness of breath Onset of Symptom 2 weeks ago 10/08/2017 None dizziness Quality interm ittent 10/08/2017 None dizziness Onset and Resolution sudden in onset 10/08/2017 None dizziness Onset of Symptom 2 weeks ago 10/08/2017 None Hospital Follow Up _ pain 09/10/2017 None Hospital Follow Up Quality intermittent 09/10/2017 None Hospital Follow Up Onset and Resolution ongoing 09/10/2017 None Hospital Follow Up Onset of Symptom 11 days ago 09/10/2017 None Hospital Follow Up Pertinent Findings Denies pain 09/10/2017 None hyperlipidemia Onset and Resolution ongoing 08/06/2017 None hyperlipidemia Onset of Symptom during adulthood 08/06/2017 None hyperlipidemia Severity moderate 08/06/2017 None hyperlipidemia Quality c hronic 08/06/2017 None hyperlipidemia Significant Family History hyperlipidemia 08/06/2017 None Advance Directives No Advance Directive data Encounters Encounter Performer Loca tion Codes Date 33427 EST. PATIENT, LEVEL III Diagnosis: Pain in left arm[ICD10: M79.602] Diagnosis: Other chest pain[ICD10: R07.89] Diagnosis: Encounter for general adult medical examination without abnormal findings[ICD10: Z00.00] [facility] CPT-4: 55228 04/14/2018 ([id number]) PER PM REEVA L EST PAT 65+ YR Diagnosis: Mixed hyperlipidemia[ICD10: E78.2] Diagnosis: Chronic thyroiditis with transient thyrotoxicosis[ICD10: E06.2] [facility] CPT-4: 83930 02/12/2018 ([id number]) 76644 EST. P ATIENT, LEVEL III Diagnosis: Chronic thyroiditis with transient thyrotoxicosis[ICD10: E06.2] [facility] CPT-4: 10265 11/26/2017 ([id number]) 00893 EST. P ATIENT, LEVEL III Diagnosis: Multiple sclerosis[ICD10: G35] Diagnosis: Localized edema[ICD10: R60.0] Paula Cintron MD, [facility] CPT-4: 68989 10/08/2017 ([id number]) 10527 EST. P ATIENT, LEVEL III Diagnosis: Concussion with loss of consciousness of 30 minutes or less, initial encounter[ICD10: S06.0X1A] Diagnosis: Laceration without foreign body of scalp, initial encounter[ICD10: S01.01XA] Diagnosis: Encounter for removal of sutures[ICD10: Z48.02] Paula Cintron MD, [facility] CPT-4: 70821 09/10/2017 ([id number]) OFFICE VISI T, NEW - LEVEL 4 Diagnosis: Mixed hyperlipidemia[ICD10: E78.2] Diagnosis: Age-related osteoporosis without current pathological fracture[ICD10: M81.0] Diagnosis: Obstructive sleep apnea (adult) (pediatric)[ICD10: G47.33] Paula [facility]intron [facility] CPT-4: 10671 08/06/2017 Plan of Care Planned Activity Notes C odes Status Date Visit Plan: Left arm pain, chest pa in - will check EKG and labs - The pt is to use prn antiinflammatories to manage acute pain. The patient is to call the office if the pain is worsening or does not improve. 04/14/2018 Visit Plan: Left arm pain, chest pa in - will check EKG and labs - The pt is to use prn antiinflammatories to manage acute pain. The patient is to call the office if the pain is worsening or does not improve. 04/14/2018 Appointment: Sayra Malone WPtel: [address] [place], [place] [phone] (15 min) Moderate 04/14/2018 Patient Education: Patient Medication Summary Completed 04/14/2018 Visit Plan: Hyperthyroid - defer to endocrinology Hyperlipidemia - pt has been counseled about appropriate diet, exercise, and need for low fat food choices. I have discussed the need for the patient to take medications as prescribed. If the patient has negative side effects from the medication, they are to CALL the office and not abruptly discontinue the medication without discussion with a practitioner in the office. We will check labs in 3-6 months for follow up on the patient's chronic medical problem and to assure normal liver response to medications. 02/12/2018 Visit Plan: Hyperthyroid - defer to endocrinology Hyperlipidemia - pt has been counseled about appropriate diet, exercise, and need for low fat food choices. I have discussed the need for the patient to take medications as prescribed. If the patient has negative side effects from the medication, they are to CALL the office and not abruptly discontinue the medication without discussion with a practitioner in the office. We will check labs in 3-6 months for follow up on the patient's chronic medical problem and to assure normal liver response to medications. 02/12/2018 Appointment: Sayra Malone WPtel: [phone] [facility] [place] (30 min) Complex 02/12/2018 Patient Education: Patient Medication Summary Completed 02/12/2018 Patient Education: Cholesterol Management Completed 02/12/2018 Visit Plan: Hyperthyroidism -rajni t wants to see Dr Contreras -will schedule thyroid ultrasound for further evaluation 11/26/2017 Appointment: Eusebia Metcalf WPtel: [phone] [phone] [place] (15 min) Moderate 11/26/2017 Patient Education: Patient Medication Summary Completed 11/26/2017 Care Plan: Referral Order SNOMED-CT : 646834099 Pending 11/26/2017 Appointment: Paula Cintron WPtel: [phone] [facility] [place] (15 min) Moderate 11/11/2017 Visit Plan: Multiple sclerosis - rx for prednisone - recommended pt to call if symptoms worsen. Edema - pt has been advised to elevate legs to prevent dependent edema, compression has been recommended to help to naturally decrease peripheral edema. Diuretic use has been discussed and pt has been instructed in appropriate use of such medication as necessary to further attempt to reduce peripheral edema. 10/08/2017 Appointment: Paula Cintron WPtel: [phone] [facility] [place] (15 min) Moderate 10/08/2017 Patient Education: Patient Medication Summary Completed 10/08/2017 Visit Plan: Concussion - recommende d pt to let me know if her headaches improve or if her symptoms worsen. [facility] removed today - #10 valerie. 09/10/2017 Appointment: Paula Cintron WPtel: [facility] (15 min) Moderate 09/10/2017 Patient Education: Patient Medication Summary Completed 09/10/2017 Visit Plan: Hyperlipidemia - pt has been counseled about appropriate diet, exercise, and need for low fat food choices. I have discussed the need for the patient to take medications as prescribed. If the patient has negative side effects from the medication, they are to CALL the office and not abruptly discontinue the medication without discussion with a practitioner in the office. We will check labs in 3-6 months for follow up on the patient's chronic medical problem and to assure normal liver response to medications. Sleep apnea - pt has been using for a year - feels like it does help. Osteoporosis - - pt on alendronate - need to check vitamin D level 08/06/2017 Appointment: Paula Cintron WPtel: [facility] New Patient 08/06/2017 Patient Education: Patient Medication Summary Completed 08/06/2017 Referral: Janelle Contreras 11/26 Re ferral info faxed. Patient informed that they will contact her with the appt. Appointment Requested Referral: Janelle Contreras Referral Appointment Requested Instructions Comment thyroid ultrasound . Hyperthyroidism -patient wants to see Dr Contreras -will schedule thyroid ultrasound for further evaluation . Concussion - recom mended pt to let me know if her headaches improve or if her symptoms worsen. [facility] removed today - #10 valerie. . Hyperthyroid - def er to endocrinology Hyperlipidemia - pt has been counseled about appropriate diet, exercise, and need for low fat food choices. I have discussed the need for the patient to take medications as prescribed. If the patient has negative side effects from the medication, they are to CALL the office and not abruptly discontinue the medication without discussion with a practitioner in the office. We will check labs in 3-6 months for follow up on the patient's chronic medical problem and to assure normal liver response to medications. . Hyperthyroid - def er to endocrinology Hyperlipidemia - pt has been counseled about appropriate diet, exercise, and need for low fat food choices. I have discussed the need for the patient to take medications as prescribed. If the patient has negative side effects from the medication, they are to CALL the office and not abruptly discontinue the medication without discussion with a practitioner in the office. We will check labs in 3-6 months for follow up on the patient's chronic medical problem and to assure normal liver response to medications. . Left arm pain, jose rafael [address] pain - will check EKG and labs - The pt is to use prn antiinflammatories to manage acute pain. The patient is to call the office if the pain is worsening or does not improve. . Left arm pain, jose ra[address] pain - will check EKG and labs - The pt is to use prn antiinflammatories to manage acute pain. The patient is to call the office if the pain is worsening or does not improve. . Multiple sclerosis - rx for prednisone - recommended pt to call if symptoms worsen. Edema - pt has been advised to elevate legs to prevent dependent edema, compression has been recommended to help to naturally decrease peripheral edema. Diuretic use has been discussed and pt has been instructed in appropriate use of such medication as necessary to further attempt to reduce peripheral edema. . Hyperlipidemia - pt has been counseled about appropriate diet, exercise, and need for low fat food choices. I have discussed the need for the patient to take medications as prescribed. If the patient has negative side effects from the medication, they are to CALL the office and not abruptly discontinue the medication without discussion with a practitioner in the office. We will check labs in 3-6 months for follow up on the patient's chronic medical problem and to assure normal liver response to medications. Sleep apnea - pt has been using for a year - feels like it does help. Osteoporosis - - pt on alendronate - need to check vitamin D level
--- OUTSIDE RECORDS SUMMARY | 2019-08-28 12:37 | XMS REPORT | CCD ---
Author Author Delia Cintron Organization Paula Cintron MD, [facility] Address [address] [place] [address] Phone Care Team Providers Care Glaze Mixer Name Role Phone PP Unavailable CCM Unavailable Summary Purpose Interface Exchange Insurance Providers Payer name Policy type / Coverage type Covered constitution party ID Effective Begin Date Effective End Date [employer] Commercial Insurance [id number] 2017 Unknown Family history Father Diagnosis Age At Onset Stroke Unknown Mother Diagnosis Age At Onset Hyperlipidemia Unknown Arthritis Unknown Osteoporosis Unknown Sister Diagnosis Age At Onset Hyperlipidemia Unknown Arthritis Unknown Social History Social History Element Codes Description Effective Dates Marital status Unknown W idowed 08/06/[address]: 4654349 Quit over 10 years ago 08/06/[address]: 401385244 Never drinks alcohol 08/06/2017 Allergies, Adverse Reactions, [...] Date Stop Date Sta tus Fill Instructions prednisone 20 mg tablet RxNorm: 251186 2 Tablet(s) PO daily 10/08/2017 10/12/2017 Inactive alendronate 70 mg ta blet RxNorm: 316789 1 Tablet(s) PO QW 09/10/2017 No Stop Date Active omeprazole 40 mg cap shireen,delayed release RxNorm: 758165 1 Capsule(s) PO BID 09/10/2017 09/04/2018 Ac tive methimazole 10 mg ta blet RxNorm: 000016 2 Tablet(s) PO daily managed by endocrinology No Start Date Active magnesium 250 mg tablet RxNorm: 2 Tablet(s) PO daily No Start Date Active Multiple Vitamin-Min erals tablet RxNorm: 1 Tablet(s) PO daily No Start Date Active propranolol 80 mg ta blet RxNorm: 980605 1 Tablet(s) PO daily managed by cardiology No Start Date Active Vitamin D3 1,000 uni t tablet RxNorm: 275367 1 Tablet(s) PO daily No Start Date Active lovastatin 20 mg tablet RxNorm: 488073 1 Tablet(s) PO daily No Start Date Active aspirin 81 mg tablet ,delayed release RxNorm: 605100 1 Tablet(s) PO daily No Start Date Active omeprazole 40 mg cap shireen,delayed release RxNorm: 502897 1 Capsule(s) PO daily No Start Date 09/09/2017 Inactive alendronate 70 mg ta blet RxNorm: 662424 1 Tablet(s) PO QW No Start Date [...] 10/08/2017 Hospital Follow Up 09/10/2017 ~generic 08/06/2017 [facility] Results Observation Observation Code Item Item Code Result Date Thyroid Antibodies 395582 THYROGLOBULIN ANTIBODY . 11/27/2017 Thyroid Antibodies 149211 THYROGLOBULIN ANTIBODY 11 IU/mL 11/27/2017 Thyroid Antibodies 811526 THYROID PEROXIDASE (TPO) AB . 11/27/2017 Thyroid Antibodies 190638 THYROID PEROXIDASE (TPO) AB 155 IU/mL 11/27/2017 Tsh Ord6 TSH (3rd IS) 0.00 uIU/mL 11/25/2017 Free T4 [id number] FREE T4 3.45 ng/dL 11/25/2017 Vitamin D 25 Oh Gqr2224 VITAMIN D, 25 HYDROXY 42.13 ng/mL 08/06/2017 [...] appearance 04/14/2018 None Full Exam - General 1995 Constitutional general appearance Hygiene/Attention to Grooming: good [...] 1: 110/48 Code: 8480-6 BMI: 22.4 Code: 46198-5 Heart Rate 1: 70 bpm Height: 5'6" SpO2: 98% Weight: 139 lbs 02/12/2018 Blood Pressure 1: 130/72 Code: 8480-6 BMI: 21.6 Code: 29620-9 Heart Rate 1: 88 bpm Height: 5'6" SpO2: 98% Weight: 134 lbs 11/26/2017 Blood Pressure 1: 140/72 Code: 8480-6 BMI: 21.6 Code: 10903-6 Heart Rate 1: 96 bpm Height: 5'6" SpO2: 97% Weight: 134 lbs 10/08/2017 Blood Pressure 1: 160/86 Code: 8480-6 Blood Pressure 1: 142/64 Code: 8480-6 Blood Pressure 1: 132/68 Code: 8480-6 BMI: 23.1 Code: 27491-9 Heart Rate 1: 99 bpm Height: 5'6" SpO2: 94% Weight: 143 lbs 09/10/2017 Blood Pressure 1: 128/88 Code: 8480-6 BMI: 22.9 Code: 28190-6 Heart Rate 1: 84 bpm Height: 5'6" SpO2: 95% Weight: 142 lbs 08/06/2017 Blood Pressure 1: 134/74 Code: 8480-6 BMI: 23.4 Code: 39089-0 Heart Rate 1: 68 bpm Height: 5'6" [...] Encounters Encounter Performer Loca tion Codes Date 75660 EST. PATIENT, LEVEL III Diagnosis: Pain in left arm[ICD10: M79.602] Diagnosis: Other chest pain[ICD10: R07.89] Diagnosis: Encounter for general adult medical examination without abnormal findings[ICD10: Z00.00] [facility] CPT-4: 92968 04/14/2018 ([id number]) PER PM REEVA L EST PAT 65+ YR Diagnosis: Mixed hyperlipidemia[ICD10: E78.2] Diagnosis: Chronic thyroiditis with transient thyrotoxicosis[ICD10: E06.2] [facility] CPT-4: 51035 02/12/2018 ([id number]) 46386 EST. P ATIENT, LEVEL III Diagnosis: Chronic thyroiditis with transient thyrotoxicosis[ICD10: E06.2] [facility] CPT-4: 99255 11/26/2017 ([id number]) 44706 EST. P ATIENT, LEVEL III Diagnosis: Multiple sclerosis[ICD10: G35] Diagnosis: Localized edema[ICD10: R60.0] [facility] CPT-4: 45301 10/08/2017 ([id number]) 91761 EST. P ATIENT, LEVEL III Diagnosis: Concussion with loss of consciousness of 30 minutes or less, initial encounter[ICD10: S06.0X1A] Diagnosis: Laceration without foreign body of scalp, initial encounter[ICD10: S01.01XA] Diagnosis: Encounter for removal of sutures[ICD10: Z48.02] [facility] CPT-4: 70156 09/10/2017 ([id number]) OFFICE VISI T, [facility] - LEVEL 4 Diagnosis: Mixed hyperlipidemia[ICD10: E78.2] Diagnosis: Age-related osteoporosis without current pathological fracture[ICD10: M81.0] Diagnosis: Obstructive sleep apnea (adult) (pediatric)[ICD10: G47.33] [facility] C CPT-4: 47334 08/06/2017 Plan of Care Planned Activity Notes [...] not improve. 04/14/2018 Appointment: Sayra Malone WPtel: [address] [place], [place] [phone] (15 min) Moderate 04/14/2018 Patient Education: Patient [...] medications. 02/12/2018 Appointment: Sayra Malone WPtel: [phone] [facility] [place] (30 min) Complex 02/12/2018 Patient Education: Patient Medication Summary Completed 02/12/2018 Patient Education: Cholesterol Management Completed 02/12/2018 Visit Plan: Hyperthyroidism -rajni donald wants to see Dr Contreras -will schedule thyroid ultrasound for further evaluation 11/26/2017 Appointment: Eusebia Metcalf WPtel: [phone] [phone] [place] (15 min) Moderate 11/26/2017 Patient Education: Patient Medication Summary Completed 11/26/2017 Care Plan: Referral Order SNOMED-CT : [id number] Pending 11/26/2017 Appointment: Paula Cintron WPtel: [phone] [facility] [place] (15 min) Moderate 11/11/2017 Visit Plan: [...] attempt to reduce peripheral edema. 10/08/2017 Appointment: aPula Cintron WPtel: [phone] [facility] [place] (15 min) Moderate 10/08/2017 Patient Education: Patient Medication Summary Completed 10/08/2017 Visit Plan: Concussion - recommende d pt to let me know if her headaches improve or if her symptoms worsen. [place] removed today - #10 guero. 09/10/2017 Appointment: Paula Cintron WPtel: [phone] [facility] [place] (15 min) Moderate 09/10/2017 Patient Education: Patient [...] D level 08/06/2017 Appointment: Paula Cintron WPtel: [address] [place], [place] [id number] New Patient 08/06/2017 Patient Education: Patient Medication [...] headaches improve or if her symptoms worsen. [place] removed today - #10 guero. . Hyperthyroid - def er to endocrinology [...]
--- OUTSIDE RECORDS SUMMARY | 2019-08-28 12:38 | XMS REPORT | CCD ---
Author Author Delia Cintron Organization Paula Cintron MD, [facility] Address [address] [place] [address] Phone Care Team Providers Care Internal Audit Manager Name Role Phone PP Unavailable CCM Unavailable Summary Purpose Interface Exchange Insurance Providers Payer name Policy type / Coverage type Covered republican ID Effective Begin Date Effective End Date AETNA Commercial Insurance [id number] 2017 Unknown Family history Father Diagnosis Age At Onset Stroke Unknown Mother Diagnosis Age At Onset Hyperlipidemia Unknown Arthritis Unknown Osteoporosis Unknown Sister Diagnosis Age At Onset Hyperlipidemia Unknown Arthritis Unknown Social History Social History Element Codes Description Effective Dates Marital status Unknown W idowed 08/06/[address]: 6414826 Quit over 10 years ago 08/06/[address]: 354604679 Never drinks alcohol 08/06/2017 Allergies, Adverse Reactions, Alerts Substance Reaction Codes Entered Date Inactivated Date Status * NO KNOWN DRUG ARIANA RGIES Unknown 11/26/2017 No Inactive Date Active Past Medical History Illness Codes Condition Status Onset Date Resolved Date Other chest pain ICD-9: 786.59 ICD-10: R07.89 [...] Condition Codes Effectiv e Dates Condition Status Other chest pain ICD-9: 786.59 ICD-10: R07.89 [...] Fill Instructions prednisone 20 mg tablet RxNorm: 597153 2 Tablet(s) PO daily 10/08/2017 10/12/2017 Inactive alendronate 70 mg ta blet RxNorm: 457759 1 Tablet(s) PO QW 09/10/2017 No Stop Date Active omeprazole 40 mg cap shireen,delayed release RxNorm: 20020329 1 Capsule(s) PO BID 09/10/2017 09/04/2018 Ac tive methimazole 10 mg ta blet RxNorm: 239854 2 Tablet(s) PO daily managed by endocrinology No Start Date Active magnesium 250 mg tablet RxNorm: 2 Tablet(s) PO daily No Start Date Active Multiple Vitamin-Min erals tablet RxNorm: 1 Tablet(s) PO daily No Start Date Active propranolol 80 mg ta blet RxNorm: 212814 1 Tablet(s) PO daily managed by cardiology No Start Date Active Vitamin D3 1,000 uni t tablet RxNorm: 806805 1 Tablet(s) PO daily No Start Date Active lovastatin 20 mg tablet RxNorm: 927761 1 Tablet(s) PO daily No Start Date Active aspirin 81 mg tablet ,delayed release RxNorm: 669730 1 Tablet(s) PO daily No Start Date Active omeprazole 40 mg cap shireen,delayed release RxNorm: 20020329 1 Capsule(s) PO daily No Start Date 09/09/2017 Inactive alendronate 70 mg ta blet RxNorm: 522055 1 Tablet(s) PO QW No Start Date 09/09/2017 Inactive Medication Administered No Medication Administered data Immunizations Vaccine Codes Date Status Influenza CVX: 141 02/06 completed Assessments Condition Codes Effectiv e Dates Other chest pain ICD-10: R07.89 ICD-9: 786.59 04/14/2018 Pain in left arm ICD-10: M79.602 ICD-9: 729.5 04/14/2018 Chronic thyroiditis with transient thyrotoxicosis ICD-10: [...] 10/08/2017 Hospital Follow Up 09/10/2017 ~generic 08/06/2017 [facility] Results Observation Observation Code Item Item Code Result Date Thyroid Antibodies 730547 THYROGLOBULIN ANTIBODY . 11/27/2017 Thyroid Antibodies 974817 THYROGLOBULIN ANTIBODY 11 IU/mL 11/27/2017 Thyroid Antibodies 594813 THYROID PEROXIDASE (TPO) AB . 11/27/2017 Thyroid Antibodies 129373 THYROID PEROXIDASE (TPO) AB 155 IU/mL 11/27/2017 Tsh Ord6 TSH (3rd IS) 0.00 uIU/mL 11/25/2017 Free T4 Eso750 FREE T4 3.45 ng/dL 11/25/2017 Vitamin D 25 Oh Edw0462 VITAMIN D, 25 HYDROXY 42.13 ng/mL 08/06/2017 [...] No rash Dermatologic No sores Neurologic weakness /02/2017 Constitutional No recent illness 08/06/2017 Constitutional No [...] 1: 110/48 Code: 8480-6 BMI: 22.4 Code: 52009-4 Heart Rate 1: 70 bpm Height: 5'6" SpO2: 98% Weight: 139 lbs 02/12/2018 Blood Pressure 1: 130/72 Code: 8480-6 BMI: 21.6 Code: 98916-0 Heart Rate 1: 88 bpm Height: 5'6" SpO2: 98% Weight: 134 lbs 11/26/2017 Blood Pressure 1: 140/72 Code: 8480-6 BMI: 21.6 Code: 36397-7 Heart Rate 1: 96 bpm Height: 5'6" SpO2: 97% Weight: 134 lbs 10/08/2017 Blood Pressure 1: 160/86 Code: 8480-6 Blood Pressure 1: 142/64 Code: 8480-6 Blood Pressure 1: 132/68 Code: 8480-6 BMI: 23.1 Code: 20548-8 Heart Rate 1: 99 bpm Height: 5'6" SpO2: 94% Weight: 143 lbs 09/10/2017 Blood Pressure 1: 128/88 Code: 8480-6 BMI: 22.9 Code: 42477-2 Heart Rate 1: 84 bpm Height: 5'6" SpO2: 95% Weight: 142 lbs 08/06/2017 Blood Pressure 1: 134/74 Code: 8480-6 BMI: 23.4 Code: 48153-1 Heart Rate 1: 68 bpm Height: 5'6" [...] Encounters Encounter Performer Loca tion Codes Date 43658 EST. PATIENT, LEVEL III Diagnosis: Pain in left arm[ICD10: M79.602] Diagnosis: Other chest pain[ICD10: R07.89] Sayra Cintron MD, [facility] CPT-4: 92202 04/14/2018 ([id number]) PER PM REEVA L EST PAT 65+ YR Diagnosis: Mixed hyperlipidemia[ICD10: E78.2] Diagnosis: Chronic thyroiditis with transient thyrotoxicosis[ICD10: E06.2] Sayra Cintron MD, [facility] CPT-4: 92110 02/12/2018 ([id number]) 44076 EST. P ATIENT, LEVEL III Diagnosis: Chronic thyroiditis with transient thyrotoxicosis[ICD10: E06.2] Eusebia Cintron MD, [facility] CPT-4: 40955 11/26/2017 ([id number]) 36337 EST. P ATIENT, LEVEL III Diagnosis: Multiple sclerosis[ICD10: G35] Diagnosis: Localized edema[ICD10: R60.0] Paula Cintron MD, [facility] CPT-4: 93728 10/08/2017 ([id number]) 77047 EST. P ATIENT, LEVEL III Diagnosis: Concussion with loss of consciousness of 30 minutes or less, initial encounter[ICD10: S06.0X1A] Diagnosis: Laceration without foreign body of scalp, initial encounter[ICD10: S01.01XA] Diagnosis: Encounter for removal of sutures[ICD10: Z48.02] Paula Cintron MD, [facility] CPT-4: 19674 09/10/2017 ([id number]) OFFICE VISI T, NEW - LEVEL 4 Diagnosis: Mixed hyperlipidemia[ICD10: E78.2] Diagnosis: Age-related osteoporosis without current pathological fracture[ICD10: M81.0] Diagnosis: Obstructive sleep apnea (adult) (pediatric)[ICD10: G47.33] Paula Cintron MD, [facility] CPT-4: 78778 08/06/2017 Plan of Care Planned Activity Notes C odes Status Date Visit Plan: Left arm pain, chest pa in - will check EKG and labs - The pt is to use prn antiinflammatories to manage acute pain. The patient is to call the office if the pain is worsening or does not improve. 04/14/2018 Patient Education: Patient Medication Summary Completed [...] to medications. 02/12/2018 Appointment: [facility]el[facility] [phone] [facility] [place] (30 min) Complex 02/12/2018 Patient Education: Patient Medication Summary Completed 02/12/2018 Patient Education: Cholesterol Management Completed 02/12/2018 Visit Plan: Hyperthyroidism -patien t wants to see Dr Contreras -will schedule thyroid ultrasound for further evaluation 11/26/2017 Appointment: Eusebia Metcalf WPtel[facility] [phone] [facility] [place] (15 min) Moderate 11/26/2017 Patient Education: Patient Medication Summary Completed 11/26/2017 Care Plan: Referral Order SNOMED-CT : [id number] Pending 11/26/2017 Appointment: Paula Cintron WPtel: [address] [place], [place] [id number] (15 min) Moderate 11/11/2017 Visit Plan: Multiple [...] peripheral edema. 10/08/2017 Appointment: Paula Cintron WPtel: [address] [place], [place] [address] (15 min) Moderate 10/08/2017 Patient Education: Patient Medication Summary Completed 10/08/2017 Visit Plan: Concussion - recommende d pt to let me know if her headaches improve or if her symptoms worsen. [place] removed today - #10 guero. 09/10/2017 Appointment: Paula Cintron WPtel: [facility] (15 min) Moderate 09/10/2017 Patient Education: Patient [...] level 08/06/2017 Appointment: Paula Cintron WPtel: [facility] New Patient 08/06/2017 Patient Education: Patient Medication Summary Completed 08/06/2017 Referral: Janelle Contreras 11/26 Re [facility] info faxed. Patient informed that they will contact her with the appt. Appointment Requested Referral: Janelle Contreras Referral Appointment Requested Instructions Comment thyroid ultrasound . Hyperthyroidism -patient wants to see Dr Contreras -will schedule thyroid ultrasound for further evaluation . Concussion - recom mended pt to let me know if her headaches improve or if her symptoms worsen. [place] removed today - #10 guero. . Hyperthyroid [...]
--- OUTSIDE RECORDS SUMMARY | 2019-08-28 12:38 | XMS REPORT | CCD ---
Author Author Delia Cintron Organization Paula Cintron MD, [facility] Address [address] [place] [address] Phone Care Team Providers Care Telegraph Dispatcher Name Role Phone PP Unavailable CCM Unavailable Summary Purpose Interface Exchange Insurance Providers Payer name Policy type / Coverage type Covered alliance party ID Effective Begin Date Effective End Date AETNA Commercial Insurance [id number] 2017 Unknown Family history Father Diagnosis Age At Onset Stroke Unknown Mother Diagnosis Age At Onset Hyperlipidemia Unknown Arthritis Unknown Osteoporosis Unknown Sister Diagnosis Age At Onset Hyperlipidemia Unknown Arthritis Unknown Social History Social History Element Codes Description Effective Dates Marital status Unknown W idowed 08/06/[address]: 8251695 Quit over 10 years ago 08/06/[address]: 866124220 Never drinks alcohol 08/06/2017 Allergies, Adverse Reactions, [...] Fill Instructions prednisone 20 mg tablet RxNorm: 744464 2 Tablet(s) PO daily 10/08/2017 10/12/2017 Inactive alendronate 70 mg ta blet RxNorm: 443382 1 Tablet(s) PO QW 09/10/2017 No Stop Date Active omeprazole 40 mg cap shireen,delayed release RxNorm: 20020329 1 Capsule(s) PO BID 09/10/2017 09/04/2018 Ac tive methimazole 10 mg ta blet RxNorm: 968138 2 Tablet(s) PO daily managed by endocrinology No Start Date Active magnesium 250 mg tablet RxNorm: 2 Tablet(s) PO daily No Start Date Active Multiple Vitamin-Min erals tablet RxNorm: 1 Tablet(s) PO daily No Start Date Active propranolol 80 mg ta blet RxNorm: 433483 1 Tablet(s) PO daily managed by cardiology No Start Date Active Vitamin D3 1,000 uni t tablet RxNorm: 696149 1 Tablet(s) PO daily No Start Date Active lovastatin 20 mg tablet RxNorm: 700129 1 Tablet(s) PO daily No Start Date Active aspirin 81 mg tablet ,delayed release RxNorm: 752457 1 Tablet(s) PO daily No Start Date Active omeprazole 40 mg cap shireen,delayed release RxNorm: 20020329 1 Capsule(s) PO daily No Start Date 09/09/2017 Inactive alendronate 70 mg ta blet RxNorm: 930096 1 Tablet(s) PO QW No Start Date [...] 10/08/2017 Hospital Follow Up 09/10/2017 ~generic 08/06/2017 [facility] Results Observation Observation Code Item Item Code Result Date Thyroid Antibodies 215239 THYROGLOBULIN ANTIBODY . 11/27/2017 Thyroid Antibodies 087167 THYROGLOBULIN ANTIBODY 11 IU/mL 11/27/2017 Thyroid Antibodies 493068 THYROID PEROXIDASE (TPO) AB . 11/27/2017 Thyroid Antibodies 638507 THYROID PEROXIDASE (TPO) AB 155 IU/mL 11/27/2017 Tsh Ord6 TSH (3rd IS) 0.00 uIU/mL 11/25/2017 Free T4 Jqe771 FREE T4 3.45 ng/dL 11/25/2017 Vitamin D 25 Oh Ktr8693 VITAMIN D, 25 HYDROXY 42.13 ng/mL 08/06/2017 [...] 1: 110/48 Code: 8480-6 BMI: 22.4 Code: 48183-8 Heart Rate 1: 70 bpm Height: 5'6" SpO2: 98% Weight: 139 lbs 02/12/2018 Blood Pressure 1: 130/72 Code: 8480-6 BMI: 21.6 Code: 93293-7 Heart Rate 1: 88 bpm Height: 5'6" SpO2: 98% Weight: 134 lbs 11/26/2017 Blood Pressure 1: 140/72 Code: 8480-6 BMI: 21.6 Code: 09329-3 Heart Rate 1: 96 bpm Height: 5'6" SpO2: 97% Weight: 134 lbs 10/08/2017 Blood Pressure 1: 142/64 Code: 8480-6 Blood Pressure 1: 132/68 Code: 8480-6 Blood Pressure 1: 160/86 Code: 8480-6 BMI: 23.1 Code: 17497-8 Heart Rate 1: 99 bpm Height: 5'6" SpO2: 94% Weight: 143 lbs 09/10/2017 Blood Pressure 1: 128/88 Code: 8480-6 BMI: 22.9 Code: 00422-2 Heart Rate 1: 84 bpm Height: 5'6" SpO2: 95% Weight: 142 lbs 08/06/2017 Blood Pressure 1: 134/74 Code: 8480-6 BMI: 23.4 Code: 94860-1 Heart Rate 1: 68 bpm Height: 5'6" [...] Encounters Encounter Performer Loca tion Codes Date 52755 EST. PATIENT, LEVEL III Diagnosis: Pain in left arm[ICD10: M79.602] Diagnosis: Other chest pain[ICD10: R07.89] Sayra Cintron MD, [facility] CPT-4: 75966 04/14/2018 ([id number]) PER PM REEVA L EST PAT 65+ YR Diagnosis: Mixed hyperlipidemia[ICD10: E78.2] Diagnosis: Chronic thyroiditis with transient thyrotoxicosis[ICD10: E06.2] Sayra Cintron MD, [facility] CPT-4: 86537 02/12/2018 ([id number]) 66299 EST. P ATIENT, LEVEL III Diagnosis: Chronic thyroiditis with transient thyrotoxicosis[ICD10: E06.2] Eusebia Cintron MD, [facility] CPT-4: 45969 11/26/2017 ([id number]) 89820 EST. P ATIENT, LEVEL III Diagnosis: Multiple sclerosis[ICD10: G35] Diagnosis: Localized edema[ICD10: R60.0] Paula Cintron MD, [facility] CPT-4: 43769 10/08/2017 ([id number]) 69885 EST. P ATIENT, LEVEL III Diagnosis: Concussion with loss of consciousness of 30 minutes or less, initial encounter[ICD10: S06.0X1A] Diagnosis: Laceration without foreign body of scalp, initial encounter[ICD10: S01.01XA] Diagnosis: Encounter for removal of sutures[ICD10: Z48.02] Paula Cintron MD, [facility] CPT-4: 36358 09/10/2017 ([id number]) OFFICE VISI T, NEW - LEVEL 4 Diagnosis: Mixed hyperlipidemia[ICD10: E78.2] Diagnosis: Age-related osteoporosis without current pathological fracture[ICD10: M81.0] Diagnosis: Obstructive sleep apnea (adult) (pediatric)[ICD10: G47.33] Paula Cintron MD, [facility] CPT-4: 68287 08/06/2017 Plan of Care Planned Activity Notes C odes Status Date Visit Plan: Left arm pain, chest pa in - will check EKG and labs - The pt is to use prn antiinflammatories to manage acute pain. The patient is to call the office if the pain is worsening or does not improve. 04/14/2018 Appointment: [facility] [phone] [facility] [place] (15 min) Moderate 04/14/2018 Patient Education: Patient [...] to medications. 02/12/2018 Appointment: [facility] [phone] [facility] [place] (30 min) Complex 02/12/2018 Patient Education: Patient Medication Summary Completed 02/12/2018 Patient Education: Cholesterol Management Completed 02/12/2018 Visit Plan: Hyperthyroidism -patien t wants to see Dr Contreras -will schedule thyroid ultrasound for further evaluation 11/26/2017 Appointment: Eusebia Metcalf WPtel: [phone] [place] (15 min) Moderate 11/26/2017 Patient Education: Patient Medication Summary Completed 11/26/2017 Care Plan: Referral Order SNOMED-CT : [id number] Pending 11/26/2017 Appointment: Paula Cintron WPtel: [facility] (15 min) Moderate 11/11/2017 Visit Plan: Multiple [...] peripheral edema. 10/08/2017 Appointment: Paula Cintron WPtel: [facility] (15 min) Moderate 10/08/2017 Patient Education: Patient Medication Summary Completed 10/08/2017 Visit Plan: Concussion - recommende d pt to let me know if her headaches improve or if her symptoms worsen. [place] removed today - #10 guero. 09/10/2017 Appointment: Paula Cintron WPtel: [facility] (15 min) Moderate 09/10/2017 Patient Education: [...] D level 08/06/2017 Appointment: Paula Cintron WPtel: [facility] New Patient 08/06/2017 Patient Education: Patient Medication [...] headaches improve or if her symptoms worsen. [place] removed today - #10 guero. . Hyperthyroid [...]
--- OUTSIDE RECORDS SUMMARY | 2019-08-28 12:38 | XMS REPORT | CCD ---
Author Author Delia Cintron Organization Paula Cintron MD, [facility] Address [address] [place] [address] Phone Care Team Providers Care Geriatric Social Worker Name Role Phone PP Unavailable CCM Unavailable Summary Purpose Interface Exchange Insurance Providers Payer name Policy type / Coverage type Covered green party ID Effective Begin Date Effective End Date AETNA Commercial Insurance [id number] Unknown Family history Father Diagnosis Age At Onset Stroke Unknown Mother Diagnosis Age At Onset Hyperlipidemia Unknown Arthritis Unknown Osteoporosis Unknown Sister Diagnosis Age At Onset Hyperlipidemia Unknown Arthritis Unknown Social History Social History Element Codes Description Effective Dates Marital status Unknown W idowed 08/06/[address]: 8681030 Quit over 10 years ago 08/06/[address]: 340950899 Never drinks alcohol 08/06/2017 Allergies, Adverse Reactions, Alerts Substance Reaction Codes Entered Date Inactivated Date Status * NO KNOWN DRUG ARIANA RGIES Unknown 11/26/2017 No Inactive Date Active Past Medical History Illness Codes Condition Status Onset Date Resolved Date Age-related osteopor osis without current pathological fracture [...] Condition Codes Effectiv e Dates Condition Status Age-related osteopor osis without current pathological fracture [...] Fill Instructions prednisone 20 mg tablet RxNorm: 499567 2 Tablet(s) PO daily 10/08/2017 10/12/2017 Inactive alendronate 70 mg ta blet RxNorm: 381560 1 Tablet(s) PO QW 09/10/2017 No Stop Date Active omeprazole 40 mg cap shireen,delayed release RxNorm: 665556 1 Capsule(s) PO BID 09/10/2017 09/04/2018 Ac tive methimazole 10 mg ta blet RxNorm: 044368 2 Tablet(s) PO daily managed by endocrinology No Start Date Active magnesium 250 mg tablet RxNorm: 2 Tablet(s) PO daily No Start Date Active Multiple Vitamin-Min erals tablet RxNorm: 1 Tablet(s) PO daily No Start Date Active propranolol 80 mg ta blet RxNorm: 108715 1 Tablet(s) PO daily managed by cardiology No Start Date Active Vitamin D3 1,000 uni t tablet RxNorm: 547918 1 Tablet(s) PO daily No Start Date Active lovastatin 20 mg tablet RxNorm: 742868 1 Tablet(s) PO daily No Start Date Active aspirin 81 mg tablet ,delayed release RxNorm: 033204 1 Tablet(s) PO daily No Start Date Active omeprazole 40 mg cap shireen,delayed release RxNorm: 852746 1 Capsule(s) PO daily No Start Date 09/09/2017 Inactive alendronate 70 mg ta blet RxNorm: 855702 1 Tablet(s) PO QW No Start Date 09/09/2017 Inactive Medication Administered No Medication Administered data Immunizations Vaccine Codes Date Status Influenza CVX: 141 02/06 completed Assessments Condition Codes Effectiv e Dates Chronic thyroiditis with transient thyrotoxicosis ICD-10: E06.2 [...] Visit Reason For Visit Effective Dates Notes hyperlipidemia 02/12/2018 hyperthyroidism 11/26/2017 shortness of breath 10/08/2017 Hospital Follow Up 09/10/2017 ~generic 08/06/2017 [facility] Results Observation Observation Code Item Item Code Result Date Thyroid Antibodies 877810 THYROGLOBULIN ANTIBODY . 11/27/2017 Thyroid Antibodies 646620 THYROGLOBULIN ANTIBODY 11 IU/mL 11/27/2017 Thyroid Antibodies 427162 THYROID PEROXIDASE (TPO) AB . 11/27/2017 Thyroid Antibodies 107842 THYROID PEROXIDASE (TPO) AB 155 IU/mL 11/27/2017 Tsh Ord6 TSH (3rd IS) 0.00 uIU/mL 11/25/2017 Free T4 Mtw514 FREE T4 3.45 ng/dL 11/25/2017 Vitamin D 25 Oh Evc2872 VITAMIN D, 25 HYDROXY 42.13 ng/mL 08/06/2017 Review of Systems System Result Effective Dates Constitutional No recent illness 02/12/2018 Constitutional No [...] Result Effective Dates Notes Full Exam - General 1994 Constitutional general [...] No Procedures data Vital Signs Date Vital 02/12/2018 Blood Pressure 1: 130/72 Code: 8480-6 BMI: 21.6 Code: 27044-1 Heart Rate 1: 88 bpm Height: 5'6" SpO2: 98% Weight: 134 lbs 11/26/2017 Blood Pressure 1: 140/72 Code: 8480-6 BMI: 21.6 Code: 90561-5 Heart Rate 1: 96 bpm Height: 5'6" SpO2: 97% Weight: 134 lbs 10/08/2017 Blood Pressure 1: 160/86 Code: 8480-6 Blood Pressure 1: 142/64 Code: 8480-6 Blood Pressure 1: 132/68 Code: 8480-6 BMI: 23.1 Code: 92586-7 Heart Rate 1: 99 bpm Height: 5'6" SpO2: 94% Weight: 143 lbs 09/10/2017 Blood Pressure 1: 128/88 Code: 8480-6 BMI: 22.9 Code: 80813-3 Heart Rate 1: 84 bpm Height: 5'6" SpO2: 95% Weight: 142 lbs 08/06/2017 Blood Pressure 1: 134/74 Code: 8480-6 BMI: 23.4 Code: 36345-2 Heart Rate 1: 68 bpm Height: 5'6" Weight: 145 lbs Functional Status No Functional Status data History of Present Illness Symptom Name Status Resu lt Effective Date Notes Onset and Resolution o ngoing 02/12/2018 None [...] Encounters Encounter Performer Loca tion Codes Date 37943 EST. PATIENT, LEVEL IV Diagnosis: Mixed hyperlipidemia[ICD10: E78.2] Diagnosis: Chronic thyroiditis with transient thyrotoxicosis[ICD10: E06.2] [facility] CPT-4: 31643 02/12/2018 ([id number]) 60086 EST. P ATIENT, LEVEL III Diagnosis: Chronic thyroiditis with transient thyrotoxicosis[ICD10: E06.2] [facility] CPT-4: 43865 11/26/2017 ([id number]) 47915 EST. P ATIENT, LEVEL III Diagnosis: Multiple sclerosis[ICD10: G35] Diagnosis: Localized edema[ICD10: R60.0] Paula Cintron MD, [facility] CPT-4: 06200 10/08/2017 ([id number]) 72557 EST. P ATIENT, LEVEL III Diagnosis: Concussion with loss of consciousness of 30 minutes or less, initial encounter[ICD10: S06.0X1A] Diagnosis: Laceration without foreign body of scalp, initial encounter[ICD10: S01.01XA] Diagnosis: Encounter for removal of sutures[ICD10: Z48.02] Paula Cintron MD, C CPT-4: 89074 09/10/2017 ([id number]) OFFICE LUI[facility] [place] - LEVEL 4 Diagnosis: Mixed hyperlipidemia[ICD10: E78.2] Diagnosis: Age-related osteoporosis without current pathological fracture[ICD10: M81.0] Diagnosis: Obstructive sleep apnea (adult) (pediatric)[ICD10: G47.33] Paula Cintron MD, C CPT-4: 57841 08/06/2017 Plan of Care Planned Activity Notes C odes Status Date Visit Plan: Hyperthyroid - defer to endocrinology [...] to medications. 02/12/2018 Appointment: Sayra Malone WPtel: [facility] [place] (30 min) Complex 02/12/2018 Patient Education: Patient Medication Summary Completed 02/12/2018 Patient Education: Cholesterol Management Completed 02/12/2018 Visit Plan: Hyperthyroidism -rajni t wants to see Dr Contreras -will schedule thyroid ultrasound for further evaluation 11/26/2017 Appointment: Eusebia Metcalf WPtel: [address] [facility] [place] (15 min) Moderate 11/26/2017 Patient Education: Patient Medication Summary Completed 11/26/2017 Care Plan: Referral Order SNOMED-CT : [id number] Pending 11/26/2017 Appointment: Paula Cintron WPtel: [address] [facility] (15 min) Moderate 11/11/2017 Visit Plan: Multiple [...] peripheral edema. 10/08/2017 Appointment: Paula Cintron WPtel: [facility] (15 min) Moderate 10/08/2017 Patient Education: Patient Medication Summary Completed 10/08/2017 Visit Plan: Concussion - recommende d pt to let me know if her headaches improve or if her symptoms worsen. [place] removed today - #10 valerie. 09/10/2017 Appointment: Paula Cintron WPtel: [facility] (15 min) Moderate 09/10/2017 Patient Education: Patient [...] Appointment: Paula Cintron WPtel: [facility] New Patient 08/06/2017 Patient Education: Patient Medication [...] headaches improve or if her symptoms worsen. [place] removed today - #10 valerie. . Hyperthyroid [...] assure normal liver response to medications. . Multiple sclerosis - rx for prednisone [...]
--- OUTSIDE RECORDS SUMMARY | 2019-08-28 12:38 | XMS REPORT | CCD ---
Author Author Delia Cintron Organization Paula Cintron MD, [facility] Address [address] [place] [address] Phone Care Team Providers Care Body Specialist Name Role Phone PP Unavailable CCM Unavailable Summary Purpose Interface Exchange Insurance Providers Payer name Policy type / Coverage type Covered green party ID Effective Begin Date Effective End Date [employer] Commercial Insurance [id number] Unknown Family history Father Diagnosis Age At Onset Stroke Unknown Mother Diagnosis Age At Onset Hyperlipidemia Unknown Arthritis Unknown Osteoporosis Unknown Sister Diagnosis Age At Onset Hyperlipidemia Unknown Arthritis Unknown Social History Social History Element Codes Description Effective Dates Marital status Unknown W idowed 08/06/[address]: 1905484 Quit over 10 years ago 08/06/[address]: 361273817 Never drinks alcohol 08/06/2017 Allergies, Adverse Reactions, [...] Fill Instructions prednisone 20 mg tablet RxNorm: 323057 2 Tablet(s) PO daily 10/08/2017 10/12/2017 Inactive alendronate 70 mg ta blet RxNorm: 754262 1 Tablet(s) PO QW 09/10/2017 No Stop Date Active omeprazole 40 mg cap shireen,delayed release RxNorm: 805354 1 Capsule(s) PO BID 09/10/2017 09/04/2018 Ac tive methimazole 10 mg ta blet RxNorm: 477059 2 Tablet(s) PO daily managed by endocrinology No Start Date Active magnesium 250 mg tablet RxNorm: 2 Tablet(s) PO daily No Start Date Active Multiple Vitamin-Min erals tablet RxNorm: 1 Tablet(s) PO daily No Start Date Active propranolol 80 mg ta blet RxNorm: 387130 1 Tablet(s) PO daily managed by cardiology No Start Date Active Vitamin D3 1,000 uni t tablet RxNorm: 034314 1 Tablet(s) PO daily No Start Date Active lovastatin 20 mg tablet RxNorm: 233600 1 Tablet(s) PO daily No Start Date Active aspirin 81 mg tablet ,delayed release RxNorm: 798961 1 Tablet(s) PO daily No Start Date Active omeprazole 40 mg cap shireen,delayed release RxNorm: 041111 1 Capsule(s) PO daily No Start Date 09/09/2017 Inactive alendronate 70 mg ta blet RxNorm: 677898 1 Tablet(s) PO QW No Start Date [...] 10/08/2017 Hospital Follow Up 09/10/2017 ~generic [facility] Results Observation Observation Code Item Item Code Result Date Thyroid Antibodies 713703 THYROGLOBULIN ANTIBODY . 11/27/2017 Thyroid Antibodies 600161 THYROGLOBULIN ANTIBODY 11 IU/mL 11/27/2017 Thyroid Antibodies 484638 THYROID PEROXIDASE (TPO) AB . 11/27/2017 Thyroid Antibodies 263017 THYROID PEROXIDASE (TPO) AB 155 IU/mL 11/27/2017 Tsh Ord6 TSH (3rd IS) 0.00 uIU/mL 11/25/2017 Free T4 Svb975 FREE T4 3.45 ng/dL 11/25/2017 Vitamin D 25 Oh Cpf0566 VITAMIN D, 25 HYDROXY 42.13 ng/mL 08/06/2017 [...] 1: 130/72 Code: 8480-6 BMI: 21.6 Code: 73288-1 Heart Rate 1: 88 bpm Height: 5'6" SpO2: 98% Weight: 134 lbs 11/26/2017 Blood Pressure 1: 140/72 Code: 8480-6 BMI: 21.6 Code: 83480-0 Heart Rate 1: 96 bpm Height: 5'6" SpO2: 97% Weight: 134 lbs 10/08/2017 Blood Pressure 1: 160/86 Code: 8480-6 Blood Pressure 1: 142/64 Code: 8480-6 Blood Pressure 1: 132/68 Code: 8480-6 BMI: 23.1 Code: 05237-6 Heart Rate 1: 99 bpm Height: 5'6" SpO2: 94% Weight: 143 lbs 09/10/2017 Blood Pressure 1: 128/88 Code: 8480-6 BMI: 22.9 Code: 06412-8 Heart Rate 1: 84 bpm Height: 5'6" SpO2: 95% Weight: 142 lbs 08/06/2017 Blood Pressure 1: 134/74 Code: 8480-6 BMI: 23.4 Code: 43158-8 Heart Rate 1: 68 bpm Height: 5'6" [...] Encounters Encounter Performer Loca tion Codes Date ([id number]) PER PM REEVA L EST PAT 65+ YR Diagnosis: Mixed hyperlipidemia[ICD10: E78.2] Diagnosis: Chronic thyroiditis with transient thyrotoxicosis[ICD10: 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 P ATIENT, LEVEL III Diagnosis: Multiple sclerosis[ICD10: G35] Diagnosis: Localized edema[ICD10: R60.0] Paula Cintron MD, [facility] CPT-4: 31839 10/08/2017 ([id number]) 32903 EST. P ATIENT, LEVEL III Diagnosis: Concussion with loss of consciousness of 30 minutes or less, initial encounter[ICD10: S06.0X1A] Diagnosis: Laceration without foreign body of scalp, initial encounter[ICD10: S01.01XA] Diagnosis: Encounter for removal of sutures[ICD10: Z48.02] Paula Cintron MD, C CPT-4: 98266 09/10/2017 ([id number]) OFFICE [facility] - LEVEL 4 Diagnosis: Mixed hyperlipidemia[ICD10: E78.2] Diagnosis: Age-related osteoporosis without current pathological fracture[ICD10: M81.0] Diagnosis: Obstructive sleep apnea (adult) (pediatric)[ICD10: G47.33] Paula Cintron MD, C CPT-4: 89885 08/06/2017 Plan of Care Planned Activity Notes [...] to medications. 02/12/2018 Appointment: Say[facility] [address] [facility] [place] [place] (30 min) Complex 02/12/2018 Patient Education: Patient Medication Summary Completed 02/12/2018 Patient Education: Cholesterol Management Completed 02/12/2018 Visit Plan: Hyperthyroidism -rajni donald wants to see Dr Contreras -will schedule thyroid ultrasound for further evaluation 11/26/2017 Appointment: Eusebia Metcalf WPtel: [address] [facility] [place] (15 min) Moderate 11/26/2017 Patient Education: Patient Medication Summary Completed 11/26/2017 Care Plan: Referral Order SNOMED-CT : [id number] Pending 11/26/2017 Appointment: Paula Cintron WPtel: [facility] [place] (15 min) Moderate 11/11/2017 Visit [...] peripheral edema. 10/08/2017 Appointment: Paula Cintron WPtel: [facility] [place] (15 min) Moderate 10/08/2017 Patient Education: Patient Medication Summary Completed 10/08/2017 Visit Plan: Concussion - recommende d pt to let me know if her headaches improve or if her symptoms worsen. Guero removed today - #10 guero. 09/10/2017 Appointment: Paula Cintron WPtel: [facility] [place] (15 min) Moderate 09/10/2017 Patient [...] to check vitamin D level 08/06/2017 [facility] [phone] [facility] [facility] 08/06/2017 Patient Education: Patient Medication [...] worsen. Guero removed today - #10 guero. . Hyperthyroid [...]
--- OUTSIDE RECORDS SUMMARY | 2019-08-28 12:39 | XMS REPORT | CCD ---
Author Author Delia Cintron Organization Paula Cintron MD, [facility] Address [address] [place] [address] Phone Care Team Providers Care Front End Technician Name Role Phone PP Unavailable CCM Unavailable Summary Purpose Interface Exchange Insurance Providers Payer name Policy type / Coverage type Covered green party ID Effective Begin Date Effective End Date AETNA Commercial Insurance [id number] Unknown Family history Father Diagnosis Age At Onset Stroke Unknown Mother Diagnosis Age At Onset Hyperlipidemia Unknown Arthritis Unknown Osteoporosis Unknown Sister Diagnosis Age At Onset Hyperlipidemia Unknown Arthritis Unknown Social History Social History Element Codes Description Effective Dates Marital status Unknown W idowed 08/06/[address]: 9851931 Quit over 10 years ago 08/06/[address]: 475748128 Never drinks alcohol 08/06/2017 Allergies, Adverse Reactions, [...] Fill Instructions prednisone 20 mg tablet RxNorm: 345756 2 Tablet(s) PO daily 10/08/2017 10/12/2017 Inactive alendronate 70 mg ta blet RxNorm: 542114 1 Tablet(s) PO QW 09/10/2017 No Stop Date Active omeprazole 40 mg cap shireen,delayed release RxNorm: 765760 1 Capsule(s) PO BID 09/10/2017 09/04/2018 Ac tive methimazole 10 mg ta blet RxNorm: 233585 2 Tablet(s) PO daily managed by endocrinology No Start Date Active magnesium 250 mg tablet RxNorm: 2 Tablet(s) PO daily No Start Date Active Multiple Vitamin-Min erals tablet RxNorm: 1 Tablet(s) PO daily No Start Date Active propranolol 80 mg ta blet RxNorm: 616773 1 Tablet(s) PO daily managed by cardiology No Start Date Active Vitamin D3 1,000 uni t tablet RxNorm: 857234 1 Tablet(s) PO daily No Start Date Active lovastatin 20 mg tablet RxNorm: 470561 1 Tablet(s) PO daily No Start Date Active aspirin 81 mg tablet ,delayed release RxNorm: 421367 1 Tablet(s) PO daily No Start Date Active omeprazole 40 mg cap shireen,delayed release RxNorm: 193956 1 Capsule(s) PO daily No Start Date 09/09/2017 Inactive alendronate 70 mg ta blet RxNorm: 976643 1 Tablet(s) PO QW No Start Date [...] Item Item Code Result Date Thyroid Antibodies 950699 THYROGLOBULIN ANTIBODY . 11/27/2017 Thyroid Antibodies 266267 THYROGLOBULIN ANTIBODY 11 IU/mL 11/27/2017 Thyroid Antibodies 664638 THYROID PEROXIDASE (TPO) AB . 11/27/2017 Thyroid Antibodies 235353 THYROID PEROXIDASE (TPO) AB 155 IU/mL 11/27/2017 Tsh Ord6 TSH (3rd IS) 0.00 uIU/mL 11/25/2017 Free T4 Tqq028 FREE T4 3.45 ng/dL 11/25/2017 Vitamin D 25 Oh Mme6821 VITAMIN D, 25 HYDROXY 42.13 ng/mL 08/06/2017 [...] 1: 130/72 Code: 8480-6 BMI: 21.6 Code: 10562-1 Heart Rate 1: 88 bpm Height: 5'6" SpO2: 98% Weight: 134 lbs 11/26/2017 Blood Pressure 1: 140/72 Code: 8480-6 BMI: 21.6 Code: 20732-5 Heart Rate 1: 96 bpm Height: 5'6" SpO2: 97% Weight: 134 lbs 10/08/2017 Blood Pressure 1: 160/86 Code: 8480-6 Blood Pressure 1: 142/64 Code: 8480-6 Blood Pressure 1: 132/68 Code: 8480-6 BMI: 23.1 Code: 83081-2 Heart Rate 1: 99 bpm Height: 5'6" SpO2: 94% Weight: 143 lbs 09/10/2017 Blood Pressure 1: 128/88 Code: 8480-6 BMI: 22.9 Code: 94809-0 Heart Rate 1: 84 bpm Height: 5'6" SpO2: 95% Weight: 142 lbs 08/06/2017 Blood Pressure 1: 134/74 Code: 8480-6 BMI: 23.4 Code: 00200-0 Heart Rate 1: 68 bpm Height: 5'6" [...] Encounters Encounter Performer Loca tion Codes Date 82654 EST. PATIENT, LEVEL IV Diagnosis: Mixed hyperlipidemia[ICD10: E78.2] Diagnosis: Chronic thyroiditis with transient thyrotoxicosis[ICD10: E06.2] [facility] CPT-4: 81125 02/12/2018 ([id number]) 39414 EST. P ATIENT, LEVEL III Diagnosis: Chronic thyroiditis with transient thyrotoxicosis[ICD10: E06.2] Eusebia [facility] CPT-4: 45291 11/26/2017 ([id number]) 83050 EST. P ATIENT, LEVEL III Diagnosis: Multiple sclerosis[ICD10: G35] Diagnosis: Localized edema[ICD10: R60.0] Paula Cintron MD, [facility] CPT-4: 05718 10/08/2017 ([id number]) 41162 EST. P ATIENT, LEVEL III Diagnosis: Concussion with loss of consciousness of 30 minutes or less, initial encounter[ICD10: S06.0X1A] Diagnosis: Laceration without foreign body of scalp, initial encounter[ICD10: S01.01XA] Diagnosis: Encounter for removal of sutures[ICD10: Z48.02] Paula Cintron MD, C CPT-4: 65403 09/10/2017 ([id number]) OFFICE [facility] - LEVEL 4 Diagnosis: Mixed hyperlipidemia[ICD10: E78.2] Diagnosis: Age-related osteoporosis without current pathological fracture[ICD10: M81.0] Diagnosis: Obstructive sleep apnea (adult) (pediatric)[ICD10: G47.33] Paula Cintron MD, C CPT-4: 28265 08/06/2017 Plan of Care Planned Activity Notes [...] assure normal liver response to medications. 02/12/2018 Patient Education: Patient Medication Summary Completed 02/12/2018 Patient Education: Cholesterol Management Completed 02/12/2018 Visit Plan: Hyperthyroidism -rajni t wants to see Dr Contreras -will schedule thyroid ultrasound for further evaluation 11/26/2017 Appointment: Eusebia Metcalf WPtel: [facility] [place] (15 min) Moderate 11/26/2017 Patient Education: Patient Medication Summary Completed 11/26/2017 Care Plan: Referral Order SNOMED-CT : [id number] Pending 11/26/2017 Appointment: Paula Cintron WPtel: [address] [place], [place] [address] (15 min) Moderate 11/11/2017 Visit Plan: Multiple [...] peripheral edema. 10/08/2017 Appointment: Paula Cintron WPtel: Formerly named [facility]3 [facility]66[facility] (15 min) Moderate 10/08/2017 Patient Education: Patient Medication Summary Completed 10/08/2017 Visit Plan: Concussion - recommende d pt to let me know if her headaches improve or if her symptoms worsen. [place] removed today - #10 guero. 09/10/2017 Appointment: Paula Cintron WPtel: [facility] named [facility] (15 min) Moderate 09/10/2017 Patient Education: Patient [...] D level 08/06/2017 Appointment: Paula Cintron WPtel: Former[facility] named [facility]8 [facility] New Patient 08/06/2017 Patient Education: Patient Medication Summary Completed 08/06/2017 Referral: [facility] informed that [facility] will [...]
--- OUTSIDE RECORDS SUMMARY | 2019-08-28 12:39 | XMS REPORT | CCD ---
Author Author Delia Cintron Organization Paula Cintron MD, [facility] Address [address] [place] [address] Phone Care Team Providers Care Intelligence Senior Sergeant Name Role Phone PP Unavailable CCM Unavailable Summary Purpose Interface Exchange Insurance Providers Payer name Policy type / Coverage type Covered libertarian ID Effective Begin Date Effective End Date A[employer]NA Commercial Insurance [id number] Unknown Family history Father Diagnosis Age At Onset Stroke Unknown Mother Diagnosis Age At Onset Hyperlipidemia Unknown Arthritis Unknown Osteoporosis Unknown Sister Diagnosis Age At Onset Hyperlipidemia Unknown Arthritis Unknown Social History Social History Element Codes Description Effective Dates Marital status Unknown W idowed 08/06/[address]: 4150164 Quit over 10 years ago 08/06/[address]: 397303207 Never drinks alcohol 08/06/2017 Allergies, Adverse Reactions, Alerts Allergies, Adverse Reactions, Alerts data not found Past Medical History Illness Codes Condition Status Onset Date Resolved Date Localized edema ICD-9: 782.3 ICD-10: R60.0 Active [...] ICD-9: 873.0 ICD-10: S01.01XA Active 09/10/2017 Unknown Age-related osteopor osis without current pathological fracture ICD-9: 733.00 ICD-10: M81.0 Active 08/06/2017 Unknown Mixed hyperlipidemia ICD-9: 272.2 ICD-10: E78.2 Active 08/06/2017 Unknown Obstructive sleep ap cynthia (adult) (pediatric) ICD-9: 327.23 ICD-10: G47.33 Active 08/06/2017 Unknown Problems Condition Codes Effectiv e Dates Condition Status Localized edema ICD-9: 782.3 ICD-10: R60.0 10/08/2017 Active Multiple sclerosis ICD- 9: 340 ICD-10: G35 10/08/2017 Active Concussion with loss of consciousness of 30 minutes or less, initial encounter ICD-9: 850.11 ICD-10: S06.0X1A 09/10/2017 Active Encounter for remova l of sutures ICD-9: V58.32 ICD-10: Z48.02 09/10/2017 Active Laceration without f oreign body of scalp, initial encounter ICD-9: 873.0 ICD-10: S01.01XA 09/10/2017 Active Age-related osteopor osis without current pathological fracture ICD-9: 733.00 ICD-10: M81.0 08/06/2017 Active Mixed hyperlipidemia ICD-9: 272.2 ICD-10: E78.2 08/06/2017 Active Obstructive sleep ap cynthia (adult) (pediatric) ICD-9: 327.23 ICD-10: G47.33 08/06/2017 Active Medications Medication Codes Instruc tions Start Date Stop Date Sta tus Fill Instructions prednisone 20 mg tablet RxNorm: 805393 2 Tablet(s) PO daily 10/08/2017 10/12/2017 Active alendronate 70 mg ta blet RxNorm: 432522 1 Tablet(s) PO QW 09/10/2017 No Stop Date Active omeprazole 40 mg cap shireen,delayed release RxNorm: 605877 1 Capsule(s) PO BID 09/10/2017 09/04/2018 Ac tive magnesium 250 mg tablet RxNorm: 2 Tablet(s) PO daily No Start Date Active Multiple Vitamin-Min erals tablet RxNorm: 1 Tablet(s) PO daily No Start Date Active Vitamin D3 1,000 uni t tablet RxNorm: 830480 1 Tablet(s) PO daily No Start Date Active lovastatin 20 mg tablet RxNorm: 483199 1 Tablet(s) PO daily No Start Date Active aspirin 81 mg tablet ,delayed release RxNorm: 043361 1 Tablet(s) PO daily No Start Date Active omeprazole 40 mg cap shireen,delayed release RxNorm: 885216 1 Capsule(s) PO daily No Start Date 09/09/2017 Inactive alendronate 70 mg ta blet RxNorm: 389302 1 Tablet(s) PO QW No Start Date 09/09/2017 Inactive Medication Administered No Medication Administered data Immunizations No Immunization data Assessments Condition Codes Effectiv e Dates Localized edema ICD-10: R60.0 ICD-9: 782.3 10/08/2017 [...] pathological fracture ICD-10: M81.0 ICD-9: 733.00 08/06/2017 Mixed hyperlipidemia ICD-10: E78.2 ICD-9: 272.2 08/06/2017 Reason For Visit Reason For Visit Effective Dates Notes shortness of breath 10/08/2017 Hospital Follow Up 09/10/2017 ~generic 08/06/2017 [facility] Results Observation Observation Code Item Item Code Result Date Vitamin D 25 Oh Rab0219 VITAMIN D, 25 HYDROXY 42.13 ng/mL 08/06/2017 Review of Systems System Result Effective Dates Constitutional No recent illness 10/08/2017 Constitutional fatigue [...] No Procedures data Vital Signs Date Vital 10/08/2017 Blood Pressure 1: 160/86 Code: 8480-6 Blood Pressure 1: 142/64 Code: 8480-6 Blood Pressure 1: 132/68 Code: 8480-6 BMI: 23.1 Code: 56982-3 Heart Rate 1: 99 bpm Height: 5'6" SpO2: 94% Weight: 143 lbs 09/10/2017 Blood Pressure 1: 128/88 Code: 8480-6 BMI: 22.9 Code: 19810-8 Heart Rate 1: 84 bpm Height: 5'6" SpO2: 95% Weight: 142 lbs 08/06/2017 Blood Pressure 1: 134/74 Code: 8480-6 BMI: 23.4 Code: 75264-3 Heart Rate 1: 68 bpm Height: 5'6" Weight: 145 lbs Functional Status No Functional Status data History of Present Illness Symptom Name Status Resu lt Effective Date Notes shortness of breath Quality breathlessness 10/08/2017 None [...] Encounters Encounter Performer Loca tion Codes Date ([id number]) 75420 EST. P ATIENT, LEVEL III Diagnosis: Multiple sclerosis[ICD10: G35] Diagnosis: Localized edema[ICD10: R60.0] Paula Cintron MD, [facility] CPT-4: 79330 10/08/2017 ([id number] 65375 EST. P ATIENT, LEVEL III Diagnosis: Concussion with loss of consciousness of 30 minutes or less, initial encounter[ICD10: S06.0X1A] Diagnosis: Laceration without foreign body of scalp, initial encounter[ICD10: S01.01XA] Diagnosis: Encounter for removal of sutures[ICD10: Z48.02] Paula Cintron MD, C CPT-4: 82255 09/10/2017 ([id number]) OFFICE VISI T, NEW - LEVEL 4 Diagnosis: Mixed hyperlipidemia[ICD10: E78.2] Diagnosis: Age-related osteoporosis without current pathological fracture[ICD10: M81.0] Diagnosis: Obstructive sleep apnea (adult) (pediatric)[ICD10: G47.33] Paula Cintron MD, C CPT-4: 42563 08/06/2017 Plan of Care Planned Activity Notes C odes Status Date Visit Plan: Multiple sclerosis - rx for [...] further attempt to reduce peripheral edema. 10/08/2017 Patient Education: Patient Medication Summary Completed 10/08/2017 Visit Plan: Concussion - recommende d pt to let me know if her headaches improve or if her symptoms worsen. Guero removed today - #10 guero. 09/10/2017 Appointment: Paula Cintron WPtel: [address] [place], [place] [address] [place] (15 min) Moderate 09/10/2017 Patient Education: [...] D level 08/06/2017 Appointment: Paula Cintron [facility]Ptel[facility] [facility] 08/06/2017 Patient Education: Patient Medication Summary Completed 08/06/2017 Instructions Comment . Concussion - recom mended pt to let me know if her headaches improve or if her symptoms worsen. Guero removed today - #10 guero. . Multiple sclerosis - rx for prednisone [...]
--- OUTSIDE RECORDS SUMMARY | 2019-08-28 12:39 | XMS REPORT | Continuity of Care Document ---
Author Organization Unknown Address Unknown Phone Unavailable Allergies Active Description Code Type Severity Reaction Onset Reported/Identified Relationship to Patient Clinical Status Yes No Known Drug Allergies [id number] Drug Allergy Unknown N/A 08/30/2017 Medications There is no data. Problems Date Dx Coded Attending Type Code Diagnosis Diagnosed By 08/30/2017 BERTO VIVAR Ot R40.2142 COMA SCALE, EYES OPEN, SPONTANEOUS, EMR 08/30/2017 BERTO VIVAR Ot R40.2252 COMA SCALE, BEST VERBAL RESPONSE, ORIENT 08/30/2017 BERTO VIVAR Ot R40.2362 COMA SCALE, BEST MOTOR RESPONSE, OBEYS C 08/30/2017 BERTO VIVAR Ot S01.01XA LACERATION WITHOUT FOREIGN BODY OF SCALP 08/30/2017 BERTO VIVAR Ot S01.81XA LACERATION W/O FOREIGN BODY OF OTH PART 08/30/2017 BERTO VIVAR Ot W01.190A FALL SAME LEV FROM SLIP/TRIP W STRIKE AG 08/30/2017 BERTO VIVAR Ot Z79.82 JAIL (CURRENT) USE OF ASPIRIN 11/20/2017 DELFINA MALONE APRN Ot E78.5 HYPERLIPIDEMIA, UNSPECIFIED 11/20/2017 DELFINA MALONE APRN Ot G3 5 MULTIPLE SCLEROSIS 11/20/2017 DELFINA MALONE APRN Ot M81.0 AGE-RELATED OSTEOPOROSIS W/O CURRENT PAT 04/15/2018 DELFINA MALONE APRN Ot M79.602 PAIN IN LEFT ARM 04/15/2018 DELFINA MALONE APRN Ot R07.9 CHEST PAIN, UNSPECIFIED 09/26/2018 DELFINA MALONE APRN Ot Z12.31 ENCNTR SCREEN MAMMOGRAM FOR MALIGNANT NE 04/13/2019 DELFINA MALONE APRN Ot E78.5 HYPERLIPIDEMIA, UNSPECIFIED 04/13/2019 DELFINA MALONE APRN Ot G3 5 MULTIPLE SCLEROSIS 04/13/2019 DELFINA MALONE APRN Ot M81.0 AGE-RELATED OSTEOPOROSIS W/O CURRENT PAT 04/13/2019 DELFINA MALONE CUT OFF SAW OPERATOR Ot M79.602 PAIN IN LEFT ARM 04/13/2019 DELFINA MALONE APRN Ot R07.9 CHEST PAIN, UNSPECIFIED 04/13/2019 DELFINA MALONE APRN Ot Z12.31 ENCNTR SCREEN MAMMOGRAM FOR MALIGNANT NE 04/16/2019 DAVID BECERRIL MD Ot G93.89 OTHER SPECIFIED DISORDERS OF BRAIN 04/16/2019 DAVID BECERRIL MD Ot 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, UNSPECIFIED 04/16/2019 DAVID BECERRIL MD Ot Z86.69 PERSONAL HISTORY OF DIS OF THE NERVOUS S 04/17/2019 W 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 Results Test Result Range Complete blood count (CBC) with automate d white blood cell (WBC) differential - 11/18/17 08:25 Blood leukocytes automated count (number/volume) 4.0 10*3/uL 4.3-11.0 Blood erythrocytes automated count (number/volume) 4.85 10*6/uL 4.35-5.85 Venous blood hemoglobin measurement (mass/volume) 13.4 g/dL 11.5-16.0 Blood hematocrit (volume fraction) 40 % 35-52 Automated erythrocyte mean corpuscular volume 83 [ foz_us] 80-99 Automated erythrocyte mean corpuscular h emoglobin (mass per erythrocyte) 28 pg 25-34 Automated erythrocyte mean corpuscular h emoglobin concentration measurement (mass/volume) 33 g/dL 32-36 Automated erythrocyte distribution width ratio 14. 1 % 10.0- 14.5 Automated blood platelet count (count/volume) 300 10*3/uL 130-400 Automated blood platelet mean volume measurement 9.6 [foz_us] 7.4-10.4 Automated blood neutrophils/100 leukocytes 49 % 42-75 Automated blood lymphocytes/100 leukocytes 33 % 12-44 Blood monocytes/100 leukocytes 14 % 0-12 Automated blood eosinophils/100 leukocytes 4 % 0-10 Automated blood basophils/100 leukocytes 1 % 0-10 Blood neutrophils automated count (number/volume) 1.9 10*3 1.8-7.8 Blood lymphocytes automated count (number/volume) 1.3 10*3 1.0-4.0 Blood monocytes automated count (number/volume) 0. 6 10*3 0.0-1.0 Automated eosinophil count 0.2 10*3/uL 0 .0-0.3 Automated blood basophil count (count/volume) 0.0 10*3/uL 0.0-0.1 Comprehensive metabolic panel - 11/18/17 08:25 Serum or plasma sodium measurement (moles/volume) 141 mmol/L 135-145 Serum or plasma potassium measurement (moles/volume) 3.9 mmol/L 3.6-5.0 Serum or plasma chloride measurement (moles/volume) 109 mmol/L 98-107 Carbon dioxide 24 mmol/L 21-32 Serum or plasma anion gap determination (moles/volume) 8 mmol/L 5-14 Serum or plasma urea nitrogen measurement (mass/volume ) 19 mg/dL 7-18 Serum or plasma creatinine measurement (mass/volume) 0.58 mg/dL 0.60-1.30 Serum or plasma urea nitrogen/creatinine mass ratio 33 NRG Serum or plasma creatinine measurement w ith calculation of estimated glomerular filtration rate > NRG Serum or plasma glucose measurement (mass/volume) 104 mg/dL 70-105 Serum or plasma calcium measurement (mass/volume) 9.5 mg/dL 8.5-10.1 Serum or plasma total bilirubin measurement (mass/volu me) 0.7 mg/dL 0.1-1.0 Serum or plasma alkaline phosphatase deja surement (enzymatic activity/volume) 54 U/L 40-136 Serum or plasma aspartate aminotransfera se measurement (enzymatic activity/volume) 28 U/L 5-34 Serum or plasma alanine aminotransferase measurement (enzymatic activity/volume) 30 U/L 0-55 Serum or plasma protein measurement (mass/volume) 6.8 g/dL 6.4-8.2 Serum or plasma albumin measurement (mass/volume) 3.9 g/dL 3.2-4.5 CALCIUM CORRECTED 9.6 mg/dL 8.5-10.1 Lipid 1996 panel - 11/18/17 08:25 Serum or plasma triglyceride measurement (mass/volume) 120 mg/dL <150 Serum or plasma cholesterol measurement (mass/volume) 144 mg/dL < 200 Serum or plasma cholesterol in HDL measurement (mass/v olume) 45 mg/dL 40-60 Cholesterol in LDL [mass/volume] in serum or plasma by direct assay 78 mg/dL 1-129 Serum or plasma cholesterol in VLDL measurement (mass/ volume) 24 mg/dL 5-40 THYROID STIMULATING HORMONE - 11/18/17 0 8:25 THYROID STIMULATING HORMONE 0.00 u[iU]/mL 0.35-4.94 VITAMIN D 25-HYDROXY - 11/18/17 08:25 VITAMIN D 25-HYDROXY (TOTAL) 71.1 % 3 0.0-100.0 Complete blood count (CBC) with automate d white blood cell (WBC) differential - 04/14/18 14:18 Blood leukocytes automated count (number/volume) 4.9 10*3/uL 4.3-11.0 Blood erythrocytes automated count (number/volume) 4.44 10*6/uL 4.35-5.85 Venous blood hemoglobin measurement (mass/volume) 12.5 g/dL 11.5-16.0 Blood hematocrit (volume fraction) 38 % 35-52 Automated erythrocyte mean corpuscular volume 86 [ foz_us] 80-99 Automated erythrocyte mean corpuscular h emoglobin (mass per erythrocyte) 28 pg 25-34 Automated erythrocyte mean corpuscular h emoglobin concentration measurement (mass/volume) 33 g/dL 32-36 Automated erythrocyte distribution width ratio 15. 9 % 10.0- 14.5 Automated blood platelet count (count/volume) 285 10*3/uL 130-400 Automated blood platelet mean volume measurement 9.5 [foz_us] 7.4-10.4 Automated blood neutrophils/100 leukocytes 54 % 42-75 Automated blood lymphocytes/100 leukocytes 33 % 12-44 Blood monocytes/100 leukocytes 9 % 0-12 Automated blood eosinophils/100 leukocytes 4 % 0-10 Automated blood basophils/100 leukocytes 0 % 0-10 Blood neutrophils automated count (number/volume) 2.7 10*3 1.8-7.8 Blood lymphocytes automated count (number/volume) 1.6 10*3 1.0-4.0 Blood monocytes automated count (number/volume) 0. 4 10*3 0.0-1.0 Automated eosinophil count 0.2 10*3/uL 0 .0-0.3 Automated blood basophil count (count/volume) 0.0 10*3/uL 0.0-0.1 Comprehensive metabolic panel - 04/14/18 14:18 Serum or plasma sodium measurement (moles/volume) 142 mmol/L 135-145 Serum or plasma potassium measurement (moles/volume) 4.0 mmol/L 3.6-5.0 Serum or plasma chloride measurement (moles/volume) 110 mmol/L 98-107 Carbon dioxide 25 mmol/L 21-32 Serum or plasma anion gap determination (moles/volume) 7 mmol/L 5-14 Serum or plasma urea nitrogen measurement (mass/volume ) 25 mg/dL 7-18 Serum or plasma creatinine measurement (mass/volume) 0.71 mg/dL 0.60-1.30 Serum or plasma urea nitrogen/creatinine mass ratio 35 NRG Serum or plasma creatinine measurement w ith calculation of estimated glomerular filtration rate > NRG Serum or plasma glucose measurement (mass/volume) 91 mg/dL 70-105 Serum or plasma calcium measurement (mass/volume) 9.1 mg/dL 8.5-10.1 Serum or plasma total bilirubin measurement (mass/volu me) 0.2 mg/dL 0.1-1.0 Serum or plasma alkaline phosphatase deja surement (enzymatic activity/volume) 94 U/L 40-136 Serum or plasma aspartate aminotransfera se measurement (enzymatic activity/volume) 18 U/L 5-34 Serum or plasma alanine aminotransferase measurement (enzymatic activity/volume) 20 U/L 0-55 Serum or plasma protein measurement (mass/volume) 6.8 g/dL 6.4-8.2 Serum or plasma albumin measurement (mass/volume) 3.9 g/dL 3.2-4.5 CALCIUM CORRECTED 9.2 mg/dL 8.5-10.1 Magnesium - 04/14/18 14:18 Magnesium 2.4 mg/dL 1.8-2.4 Serum or plasma creatine kinase measurem ent (enzymatic activity/volume) - 04/14/18 14:18 Serum or plasma creatine kinase measurem ent (enzymatic activity/volume) 59 U/L 29-168 Serum or plasma creatine kinase MB measu rement (enzymatic activity/volume) - 04/14/18 14:18 Serum or plasma creatine kinase MB measu rement (enzymatic activity/volume) 0.8 ng/mL <6.6 Serum or plasma troponin i.cardiac measu rement (mass/volume) - 04/14/18 14:18 Serum or plasma troponin i.cardiac measurement (mass/v olume) < ng/mL <0.028 Coronavirus SARS-CoV-2 SO 2018 - 0 08:00 Coronavirus Ab [Units/volume] in Serum Negative Negative Encounters ACCT No. Visit Date/Time Discharge Status Pt. Type Provider Facility Loc./Unit Complaint [id number] 07/25/2017 07:54:13 07/25/2017 23:59:5 9 CLS Outpatient [id number] 08/25/2019 05:31:00 10:20:00 DIS Outpatient ELY PIPER, JEANINE Mclaughlin [facility] PREOP COLONOSCOPY [id number] 04/14/2019 08:52:00 23:59:59 CLS Outpatient JONE PIPER, DAVID Merchant [facility] RAD MULTIPLE SCLEROSIS [id number] 09/24/2018 14:48:00 23:59:59 CLS Outpatient DELFINA MALONE APRN [facility] RAD SCREENING [id number] 04/14/2018 13:56:00 23:59:59 CLS Outpatient DELFINA MALONE APRN [facility] CARD LEFT ARM PAIN,INTERMIT TENT CHEST PAIN [id number] 11/26/2017 12:27:00 23:59:59 CLS Preadmit RAS GONZALEZ [facility] RAD HYPERTHYROIDISM [id number] 11/18/2017 08:15:00 23:59:59 CLS Outpatient DELFINA MALONE APRN [facility] LAB E78.2,M81.0 [id number] 08/30/2017 11:47:00 018 14:04:00 DIS Emergency CB BERTO [facility] ER FALL/HEAD INJURY [id number] 08/28/2019 11:00:00 P DEANDRE GRAVES MD, JEANINE Mclaughlin [facility] ENDO +COLOGUARD/ULCERATIVE COLITI S
--- NOTE | 2019-08-28 21:13 | OPERATIVE REPORT ---
DATE OF SERVICE: COLONOSCOPY SUMMARY INDICATION FOR THE PROCEDURE: Positive Cologuard, reported past history of ulcerative colitis. DESCRIPTION OF PROCEDURE: The patient was placed in the left lateral decubitus position. Prior to undergoing colonoscopy, digital rectal evaluation was performed. Anal sphincter tone was normal and the perianal reflexes intact. The procedure was done under Diprivan anesthesia. The colonoscope was then inserted into the rectum and under direct visualization advanced to cecum. The cecum was identified by identification of the ileocecal valve and the cecal strap. Photographic documentation was obtained. Colyte prep was good. The test would not likely have been possible without Diprivan based anesthesia due to some intrinsic adhesions involving the colon. There was, however, no evidence for obstruction and the patient was not having any obstructive symptomatology. FINDINGS: There was no evidence for internal or external hemorrhoids and the rectum, sigmoid colon, descending colon, splenic flexure, transverse colon, ascending colon and cecum were unremarkable except for some angulation with a little bit of narrowing noted in the distal ascending colon, likely due to extrinsic adhesions. There was no evidence for neoplasia with good visualization of the area. There was no evidence for neoplasia throughout the entire colon indicative of a false positive Cologuard. No evidence for diverticular disease was noted. The patient was reassured. ASSESSMENT: No evidence for neoplasia was identified on today's procedure indicative of a false positive Cologuard. The patient does have some redundancy involving the sigmoid colon without evidence for diverticular disease. Considering this patient's age and medical comorbidities, would not advocate future screening colonoscopy. Job ID: [id number] DocumentID: [id number] Dictated Date: 08/28/2019 11:56:47 Director Of Blood Date: 08/28/2019 21:13:36 Dictated By: JEANINE GRAVES MD [facility]
== END | disposition home or self-care (01) ==
LOC: ENDO 08:27
PROVIDERS: ATTEND Internal Medicine
DX: R19.5 Other fecal abnormalities (principal); Z86.010 Personal history of colon polyps; E78.5 Hyperlipidemia, unspecified; M19.90 Unspecified osteoarthritis, unspecified site; Z79.890 Hormone replacement therapy; Z79.899 Other long term (current) drug therapy; Z79.82 Long term (current) use of aspirin; Z87.891 Personal history of nicotine dependence; Z87.19 Personal history of other diseases of the digestive system

== ENCOUNTER → 2019-11-17 | Outpatient (CLI) | payer MEDICARE ==
[~2019-11-17] MED LIST changes: -D5 LR IV SOLUTION 1,000 ML IV ONE; -D5 LR IV SOLUTION 1,000 ML IV PRN; -LIDOCAINE JELLY 2% 6 ML SYRINGE MM PRN; -MIDAZOLAM 5 MG/5 ML (VERSED) VIAL IV PRN; -fentaNYL INJECTION 100 MCG/2 ML AMP IVP ONE; -proPOfol 200 MG/20 ML (DIPRIVAN) VIAL IV ONE
--- NOTE | 2019-11-17 09:07 | Diagnostic Imaging Report ---
INDICATION: Postmenopausal. COMPARISON: None. FINDINGS: The bone mineral density of the hips and spine was measured. There are no prior studies available for comparison. The total T score for the spine is -0.9. This value is within normal limits. The total T score for the left hip is -1.2 and for the right hip -1.8. The T score for the left femoral neck is -2.1. All of these values fall within the range of osteopenia; however, the T score for the right femoral neck is -2.5 and this does indicate osteoporosis. AP Spine L1-L4: [BMD (g/cm2): 1.089] [T-Score: -0.9] [Z-Score: 0.9] [BMD Previous: NA] [BMD % Change: NA] LT Hip Neck: [BMD (g/cm2): 0.750] [T-Score: -2.1] [Z-Score: -0.1] LT Hip Total: [BMD (g/cm2):0.851] [T-Score:-1.2] [Z-Score: 0.6] [BMD Previous: NA] [BMD % Change: NA] RT Hip Neck: [BMD (g/cm2):0.694] [T-Score:-2.5] [Z-Score:-0.5] RT Hip Total: [BMD (g/cm2):0.785] [T-score:-1.8] [Z-Score:0.0] [BMD Previous:NA] [BMD % Change:NA] *Indicates significant change from prior examination based on 95% confidence level. World Health Organization criteria for BMD interpretation classify patients as Normal (T-score at or above -1.0), Osteopenic (T-score between -1.0 and -2.5) or Osteoporotic (T-score at or below -2.5). LIMITATIONS AND MODIFICATION: None. FRACTURE RISK (FRAX SCORE): The ten year probability of (%): Major Osteoporotic Fracture: [17.5] Hip Fracture: [5.7] IMPRESSION: 1. The bone mineral density of the spine is within normal limits. 2. The total T scores for the hips and the T score for the left femoral neck indicate osteopenia; however, there is osteoporosis of the right femoral neck. 3. See below National Osteoporosis Foundation guidelines on when to potentially initiate pharmacologic therapy. Based on the National Osteoporosis Foundation Guidelines, pharmacologic treatment should be initiated in any of the following, unless clinical conditions suggest otherwise: * Any patient with prior fragility fracture of the hip or vertebrae. A spine fracture indicates 5X risk for subsequent spine fracture and 2X risk for subsequent hip fracture. * Osteoporosis (T-score <-2.5). * Postmenopausal women and men age 50 and older with low bone mass/osteopenia (T-score between -1.0 and -2.5) by DXA and 10-year major osteoporotic fracture greater than 20% or a 10-year probability of hip fracture greater than 3%. These fracture risks are supplied above in the FRAX score, if applicable. * Clinician judgement and/or patient preferences may indicate treatment for people with 10-year fracture probabilities above or below these levels. Dictated by: Dictated on workstation # [id number]
--- NOTE | 2019-11-17 16:21 | Diagnostic Imaging Report ---
EXAMINATION: Digital mammogram bilateral screening with CAD. INDICATION: Screening. COMPARISON: This study was compared to the prior exams of 09/24/2018, 02/19/2017, and 02/02/2016. PERSONAL HISTORY: At this time, there are no current complaints. The patient did note intermittent pain in the right breast, however. FINDINGS: The breasts are predominantly fatty. When compared to the prior study, there has been no significant change. There is no primary or secondary sign of malignancy noted. IMPRESSION: There is no evidence for malignancy. ACR BI-RADS Category 1: Negative. Result letter will be mailed to the patient. Note: At least 10% of breast cancer is not imaged by mammography. Dictated by: Dictated on workstation # [id number]
== END ==
LOC: RAD 08:09
PROVIDERS: ATTEND Family Medicine
DX: Z12.31 Encounter for screening mammogram for malignant neoplasm of breast (principal); M81.0 Age-related osteoporosis without current pathological fracture; Z78.0 Asymptomatic menopausal state
CPT/HCPCS: 77063; 77067; 77080

== ENCOUNTER → 2020-02-03 | Outpatient (CLI) | payer MEDICARE ==
[~2020-02-03] VITALS: Ht 161.3 cm; Wt 65.0 kg
[~2020-02-03] MED LIST changes: -ALEN70TA5 PO; +ALEN70TA69 PO; +ASPI-1238 PO; +DENOSUMAB 60 MG/1 ML (PROLIA) SQ ONE; +LEVO50TA PO; +LEVO75TA84 PO; +LOVA40TA2 PO; +MAGN500C15 PO; +MULT-974 PO; +SELENIUM PO
[2020-02-03 15:00] VITALS: BP 141/89
== END ==
LOC: SDC 13:47
PROVIDERS: ATTEND Family Medicine
DX: M81.0 Age-related osteoporosis without current pathological fracture (principal)
CPT/HCPCS: 96372

== ENCOUNTER → 2020-08-08 | Outpatient (CLI) | payer MEDICARE ==
[~2020-08-08] MED LIST changes: -ALEN70TA69 PO; +ALEN70TA80 PO
[2020-08-08 13:40] VITALS: BP 132/69
== END ==
LOC: SDC 13:24
PROVIDERS: ATTEND Family Medicine
DX: M81.0 Age-related osteoporosis without current pathological fracture (principal)
CPT/HCPCS: 96372

== ENCOUNTER → 2020-11-18 | Outpatient (CLI) | payer MEDICARE ==
[~2020-11-18] MED LIST changes: -DENOSUMAB 60 MG/1 ML (PROLIA) SQ ONE; -OMEP40CA27 PO; +OMEP40CA6 PO
--- NOTE | 2020-11-18 11:40 | Diagnostic Imaging Report ---
INDICATION: Routine screening. COMPARISON is made to prior mammograms from 11/17/2019 and 09/24/2018. 2-D and 3-D bilateral screening mammography was performed with CAD. Scattered fibroglandular densities are identified bilaterally. The parenchymal pattern is stable. No mass or malignant-appearing microcalcifications are seen. There are benign calcifications present. Axillae are unremarkable. IMPRESSION: BI-RADS Category 2 No mammographic features suspicious for malignancy are identified. ACR BI-RADS Category 2: Benign findings. Result letter will be mailed to the patient. Note: At least 10% of breast cancer is not imaged by mammography. Dictated by: Dictated on workstation # [id number]
== END ==
LOC: RAD 08:02
PROVIDERS: ATTEND Family Medicine
DX: Z12.31 Encounter for screening mammogram for malignant neoplasm of breast (principal)
CPT/HCPCS: 77063; 77067

== ENCOUNTER → 2021-02-15 | Outpatient (CLI) | payer MEDICARE ==
[~2021-02-15] VITALS: Ht 162.6 cm; Wt 65.0 kg
[~2021-02-15] MED LIST changes: +DENOSUMAB 60 MG/1 ML (PROLIA) SQ SCH
[2021-02-15 13:04] VITALS: BP 130/71
== END ==
LOC: SDC 12:39
PROVIDERS: ATTEND Family Medicine
DX: M81.0 Age-related osteoporosis without current pathological fracture (principal)
CPT/HCPCS: 96372

== ENCOUNTER → 2021-06-29 | Outpatient (CLI) | payer MEDICARE ==
[~2021-06-29] MED LIST changes: -CHOL200014 PO; +CHOL200052 PO; -DENOSUMAB 60 MG/1 ML (PROLIA) SQ SCH; -MAGN250T2 PO; +MAGN250T31 PO
== END ==
LOC: CARD 13:55
PROVIDERS: ATTEND Family Medicine
DX: Z01.818 Encounter for other preprocedural examination (principal); H02.831 Dermatochalasis of right upper eyelid; H02.834 Dermatochalasis of left upper eyelid; E78.2 Mixed hyperlipidemia; E03.4 Atrophy of thyroid (acquired); G35 Multiple sclerosis
CPT/HCPCS: 93005

== ENCOUNTER 2021-08-07 08:33 | Outpatient (CLI) | payer MEDICARE | END 2021-08-07 08:50 | LOC: SLEEP 08:33 | PROVIDERS: ATTEND Family Medicine | DX: G47.33 Obstructive sleep apnea (adult) (pediatric) (principal) | CPT/HCPCS: G0399 ==

== ENCOUNTER → 2021-08-18 | Outpatient (CLI) | payer MEDICARE ==
[~2021-08-18] MED LIST changes: +DENOSUMAB 60 MG/1 ML (PROLIA) SQ ONE
[2021-08-18 12:29] VITALS: BP 120/62
== END ==
LOC: SDC 12:13
PROVIDERS: ATTEND Family Medicine
DX: M81.0 Age-related osteoporosis without current pathological fracture (principal)
CPT/HCPCS: 96372

== ENCOUNTER → 2021-11-28 | Outpatient (CLI) | payer MEDICARE ==
[~2021-11-28] MED LIST changes: -DENOSUMAB 60 MG/1 ML (PROLIA) SQ ONE
--- NOTE | 2021-11-28 16:47 | Diagnostic Imaging Report ---
INDICATION: Routine screening. COMPARISON: Correlation is made with the prior mammograms of 11/18/2020 and 11/17/2019. TECHNIQUE: 2D and 3D bilateral screening mammography was performed with CAD. FINDINGS: Scattered fibroglandular densities are identified bilaterally. There are scattered benign parenchymal and vascular calcifications in both breasts. No mass or malignant appearing microcalcifications are seen. The axillae are unremarkable. IMPRESSION: No mammographic features suspicious for malignancy are identified. ACR BI-RADS Category 2: Benign findings. Result letter will be mailed to the patient. Note: At least 10% of breast cancer is not imaged by mammography. Dictated by: Dictated on workstation # [id number]
--- NOTE | 2021-11-28 16:51 | Diagnostic Imaging Report ---
INDICATION: Postmenopausal state, screening for osteoporosis. COMPARISON: 11/17/2019. FINDINGS: AP Spine L2-L4: [BMD (g/cm2): 1.195] [T-Score: 0.0] [Z-Score: 1.8] [BMD Previous: 1.089] [BMD % Change: 9.7]* LT Hip Neck: [BMD (g/cm2): 0.777] [T-Score: -1.9] [Z-Score: 0.2] LT Hip Total: [BMD (g/cm2):0.871] [T-Score:-1.1] [Z-Score: 0.8] [BMD Previous: 0.851] [BMD % Change: 2.4] RT Hip Neck: [BMD (g/cm2):0.682] [T-Score:-2.6] [Z-Score:-0.5] RT Hip Total: [BMD (g/cm2):0.824] [T-score:-1.5] [Z-Score:0.5] [BMD Previous:0.785] [BMD % Change:5.0]* *Indicates significant change from prior examination based on 95% confidence level. World Health Organization criteria for BMD interpretation classify patients as Normal (T-score at or above -1.0), Osteopenic (T-score between -1.0 and -2.5) or Osteoporotic (T-score at or below -2.5). LIMITATIONS AND MODIFICATION: None. FRACTURE RISK (FRAX SCORE): Not calculated as the patient is being treated for osseous demineralization. IMPRESSION: 1. Osteoporosis. 2. There has been a statistically significant increase in BMD since prior exam, detailed above. 3. See below National Osteoporosis Foundation guidelines on when to potentially initiate pharmacologic therapy. Based on the National Osteoporosis Foundation Guidelines, pharmacologic treatment should be initiated in any of the following, unless clinical conditions suggest otherwise: * Any patient with prior fragility fracture of the hip or vertebrae. A spine fracture indicates 5X risk for subsequent spine fracture and 2X risk for subsequent hip fracture. * Osteoporosis (T-score <-2.5). * Postmenopausal women and men age 50 and older with low bone mass/osteopenia (T-score between -1.0 and -2.5) by DXA and 10-year major osteoporotic fracture greater than 20% or a 10-year probability of hip fracture greater than 3%. These fracture risks are supplied above in the FRAX score, if applicable. * Clinician judgement and/or patient preferences may indicate treatment for people with 10-year fracture probabilities above or below these levels. Dictated by: Dictated on workstation # [id number]
== END ==
LOC: RAD 13:36
PROVIDERS: ATTEND Family Medicine
DX: Z13.820 Encounter for screening for osteoporosis (principal); Z12.31 Encounter for screening mammogram for malignant neoplasm of breast; M81.0 Age-related osteoporosis without current pathological fracture; Z78.0 Asymptomatic menopausal state
CPT/HCPCS: 77063; 77067; 77080

== ENCOUNTER → 2022-04-12 | Outpatient (CLI) | payer MEDICARE ==
[~2022-04-12] MED LIST changes: +DENOSUMAB 60 MG/1 ML (PROLIA) SQ SCH
[2022-04-12 11:30] VITALS: BP 146/77
== END ==
LOC: SDC 11:23
PROVIDERS: ATTEND Family Medicine
DX: M81.0 Age-related osteoporosis without current pathological fracture (principal)
CPT/HCPCS: 96372

== ENCOUNTER 2022-07-26 12:35 | Emergency (ER) | payer MEDICARE ==
[~2022-07-26] VITALS: Ht 160 cm; Wt 67.5 kg
[~2022-07-26 12:35] MED LIST changes: -DENOSUMAB 60 MG/1 ML (PROLIA) SQ SCH
--- NOTE | 2022-07-26 13:06 | ED Trauma-Multisystem ---
General Chief Complaint: Trauma-Non Activation Stated Complaint: FALL | LACERATIONS Nursing Triage Note: PT AMB TO [facility] 5 PT CO OF FALLING AFTER GETTING SHOE CAUGHT ON CRACK. PT HAS LAC TO UPPER LIP, R SIDE OF JAW, STATES HIT R SIDE OF HEAD, SKIN TEAR TO R WRIST AND FELL ON TOO BOTH KNEES ABRASIONS NOTED Source of Information: Patient Exam Limitations: No Limitations (DOLORES SLAUGHTER APRN) History of Present Illness Date Seen by Provider: Jul 26, 2022 Time Seen by Provider: 12:53 Initial Comments 76-year-old female presents to the ER after a fall which occurred around 12:30 PM. She states that her toe got caught in a crack. She hit her knees, right wrist, and right side of face when she fell. She presents with bilateral abrasions to knees, skin tear to right wrist, ecchymosis to right cheek, jerson kevin to right forehead, and small laceration to lip. She states that her tetanus was 2 to 3 years ago. Denies loss of consciousness. She does take a baby aspirin daily. (DOLORES SLAUGHTER APRN) Allergies and Home Medications Allergies Coded Allergies: No Known Drug Allergies (Unverified , 08/30/17) Patient Home Medication List Home Medication List Reviewed: Yes (DOLORES SLAUGHTER APRN) Aspirin (Aspirin EC) 81 Mg Tablet.dr, 81 MG PO DAILY, (Reported) Entered as Reported by: CHLOE MENDOZA on 02/03/201920 Cholecalciferol (Vitamin D3) (Vitamin D3) 50 Mcg Tablet, 2,000 INTLU PO DAILY, (Reported) Entered as Reported by: LISA BRISENO on 08/24/19 1244 Levothyroxine Sodium (Unithroid) 50 Mcg Tablet, 50 MCG PO UD, (Reported) Entered as Reported by: CHLOE MENDOZA on 02/03/201920 Levothyroxine Sodium (Unithroid) 75 Mcg Tablet, 75 MCG PO UD, (Reported) Entered as Reported by: CHLOE MENDOZA on 02/03/201920 Lovastatin (Lovastatin) 40 Mg Tablet, 40 MG PO HS, (Reported) Entered as Reported by: CHLOE MENDOZA on 02/03/201923 Magnesium Oxide (Magnesium) 500 Mg Capsule, 500 MG PO BID, (Reported) Entered as Reported by: CHLOE MENDOZA on 02/03/201923 Multivitamin (Multi-Vitamin Daily) 1 Each Tablet, 1 EACH PO DAILY, (Reported) Entered as Reported by: CHLOE MENDOZA on 02/03/201920 Omeprazole (Omeprazole) 40 Mg Capsule.dr, 40 MG PO DAILY, (Reported) Entered as Reported by: CATALINA VIVAR on 08/30/17 1217 [Selenium] Unknown Strength , Unknown Dose PO BID, (Reported) Entered as Reported by: CHLOE MENDOZA on 02/03/201920 Review of Systems Review of Systems Constitutional: see HPI (DOLORES SLAUGHTER APRN) Past Sethzno-Gjypfz-Jpllkk Hx Patient Social History Tobacco Use?: No Substance use?: No Alcohol Use?: No Pt feels they are or have been: No (DOLORES SLAUGHTER APRN) Immunizations Up To Date Tetanus Booster (TDap): Less than 5yrs First/Initial COVID19 Vaccinat: YES Second COVID19 Vaccination Jaswinder: YES Third COVID19 Vaccination Date: YES (DOLORES SLAUGHTER APRN) Seasonal Allergies Seasonal Allergies: No (DOLORES SLAUGHTER APRN) Past Medical History Surgery/Hospitalization HX: MS IN REMISSION, THYROIDECTOMY, SCIATICA, HYST, TUBAL, D AND C, GB Surgeries: Yes (D&C, ) Gallbladder, Hysterectomy, Tubal Ligation Respiratory: No Cardiac: Yes High Cholesterol Neurological: Yes Multiple Sclerosis Genitourinary: No Gastrointestinal: Yes Gastroesophageal Reflux, Ulcer Musculoskeletal: No Endocrine: Yes (Grave's 1-131 ablation) HEENT: No Cancer: No Psychosocial: No Integumentary: No Blood Disorders: No (DOLORES SLAUGHTER APRN) Physical Exam Vital Signs Vital Signs - First Documented 07/26/22 07/26/22 12:45 14:24 Temp 37.2 Pulse 66 Resp 16 B/P (MAP) 126/82 Pulse Ox 93 (CARMELA VALVERDE MD) Height, Weight, BMI Height: 5'6.00" Weight: 142lbs. oz. 64.688373fm; 26.00 BMI Method:Stated General Appearance: No Apparent Distress, WD/WN Head: Ecchymosis (Right cheek), Lacerations (Right upper lip), Other (Abrasion right forehead); No Active Bleeding, No Cavazos's Sign Eyes: Bilateral Eye Normal Inspection, Bilateral Eye PERRL, Bilateral Eye EOMI Ears, Nose, Throat: Hearing Grossly Normal, No Evidence of ENT Injury, No Dental Injury Neck: Full Range of Motion, Normal Inspection, Non Tender, Supple Cardiovascular: Regular Rate, Rhythm Respiratory: Lungs Clear, Normal Breath Sounds, No Accessory Muscle Use, No Respiratory Distress Extremity: Normal Capillary Refill, Normal Range of Motion, Non Tender, Other (Normal range of motion of bilateral knees and bilateral wrists, no pain with movement of knees or wrists) Neurologic/Psychiatric: Alert, Oriented x3, No Motor/Sensory Deficits, Normal Mood/Affect, registered nurse behavioral health II-XII Norm as Tested Skin: Normal Color, Warm/Dry (DOLORES SLAUGHTER APRN) [place] Coma Score Best Eye Response (Rosio): (4) Open Spontaneously Best Verbal Response (Rosio): (5) Oriented Best Motor Response ([place]): (6) Obeys Commands (DOLORES SLAUGHTER APRN) Procedures/Interventions Wound Location: Face Other Wound Location left upper lip Wound's Depth, Shape: linear Irrigated w/ Saline (ccs): 50 Anesthesia: 1% Lidocaine Volume Anesthetic (ccs): 0 Wound Debrided: minimal Suture: Ethlion Suture Size: 5-0 Number of Sutures: 2 Wound Location: Upper Extremities Other Wound Location right wrist Wound's Depth, Shape: superficial (skin tear) Wound Explored: clean Irrigated w/ Saline (ccs): 50 Wound Debrided: minimal Other Closure Supply: Steri Strip 1/4", Mastisol Number of Sutures: 3 (DOLORES SLAUGHTER APRN) Progress/Results/Core Measures Results/Orders Vital Signs/I&O 07/26/22 07/26/22 12:45 14:24 Temp 37.2 37.2 Pulse 66 66 Resp 16 16 B/P (MAP) 126/82 Pulse Ox 93 93 (CARMELA VALVERDE MD) Progress Progress Note : Progress Note Patient seen and evaluated, resting comfortably in bed, no acute distress. CT head and neck ordered. Considered x-rays of bilateral knees and right wrist, but there is no pain with range of motion, patient has full range of motion. Laceration of lip will need to be repaired with sutures. Skin tear on right wrist will be repaired with Steri-Strips. Patient was concerned about her teeth being loose from the fall. Denies dental pain or feel like her teeth are loose. No dental trauma noted. CT maxillofacial ordered. Laceration and skin tear repaired, see procedure note. Imaging reviewed. No acute intracranial process or skull fracture. No acute fracture of the cervical spine. No acute facial fractures. Results discussed with patient. Discharge instructions and return precautions provided. (DOLORES SLAUGHTER APRN) Diagnostic Imaging Diagonstic Imaging: CT Plain Films/CT/US/NM/MRI: c-spine, head Comments [facility], [place] NAME: VIVIANE GOMEZ [facility] REC#: [id number] PT STATUS: REG ER : 1945 PHYSICIAN: DOLORES SLAUGHTER APRN ADMIT DATE: 07/26/22/ER Signed Date of Exam:07/26/22 CT HEAD/CERVICAL SPINE WO PROCEDURE: CT head and CT cervical spine without contrast. TECHNIQUE: Multiple contiguous axial images were obtained through the brain and cervical spine without the use of intravenous contrast. Sagittal and coronal reformations through the cervical spine were then performed. Auto Exposure Controls were utilized during the CT exam to meet ALARA standards for radiation dose reduction. INDICATION: Head and neck trauma COMPARISON: 08/30/2017 FINDINGS: Head: No hyperdense hemorrhage or space-occupying mass. No hydrocephalus or midline shift. No evidence of territorial infarct. Basilar cisterns are patent. Global cerebral atrophy is unchanged. No focal scalp swelling. No skull fracture. The paranasal sinuses and mastoid air cells are clear. Cervical spine: No acute fracture or traumatic malalignment. Multilevel degenerative changes cause no more than mild spinal canal stenosis. There very degrees of mild to severe foraminal stenoses due to facet and uncovertebral joint hypertrophy. Airway is patent. No cervical lymphadenopathy. Visualized thyroid is normal. IMPRESSION: 1. No acute intracranial process or skull fracture. 2. No acute fracture or traumatic malalignment of the cervical spine. Dictated by: Dictated on workstation # [id number] Dict: 07/26/22 1323 Trans: 07/26/22 1328 [facility] [id number] Interpreted by: DAIN SILVA MD Electronically signed by: DAIN SILVA MD 07/26/22 1328 Diagonstic Imaging: CT Plain Films/CT/US/NM/MRI: facial bones Comments [facility], [place] NAME: VIVIANE GOMEZ [facility] REC#: [id number] PT STATUS: REG ER : 1945 PHYSICIAN: DOLORES SLAUGHTER APRN ADMIT DATE: 07/26/22/ER Signed Date of Exam:07/26/22 CT MAXILLOFACIAL WO PROCEDURE: CT maxillofacial without contrast. TECHNIQUE: Multiple contiguous axial images were obtained through the facial bones without the use of intravenous contrast. Auto Exposure Controls were utilized during the CT exam to meet ALARA standards for radiation dose reduction. INDICATION: Fall. Facial bruising. Face pain. COMPARISON: None. FINDINGS: No acute facial fractures. The mandible, zygomatic arches, and pterygoid plates are intact. The nasal bones and nasal septum demonstrate no acute fracture. The paranasal sinuses and mastoid air cells are clear. The globes and orbits are unremarkable. The included intracranial contents have a normal appearance. The mastoid air cells are well pneumatized. Small amount of soft tissue edema is seen overlying the right maxilla. No evidence of fluid collection or mass. IMPRESSION: 1. No acute facial fractures. 2. Small amount of edema overlying the right maxilla. Dictated by: Dictated on workstation # [id number] Dict: 07/26/22 1357 Trans: 07/26/22 1403 [id number] [id number] Interpreted by: SHARI MCKINLEY DO Electronically signed by: SHARI MCKINLEY DO 07/26/22 1403 (DOLORES SLAUGHTER APRN) Departure Impression Primary Impression: Fall Qualified Codes: W19.XXXA - Unspecified fall, initial encounter Additional Impressions: Laceration Head injury Qualified Codes: S09.90XA - Unspecified injury of head, initial encounter Disposition: 01 HOME, SELF-CARE Condition: Stable Departure-Patient Inst. Decision time for Depature: 14:13 (DOLORES SLAUGHTER APRN) Referrals: DAVID BECERRIL MD (PCP/Family) Primary Care Physician Patient Instructions: Head Injury Observation (DC) Add. Discharge Instructions: Your sutures need to be removed in 3 to 5 days. You can return here or see your primary care to have the sutures removed. Keep your wounds clean and dry. You can wash your sutures, do not scrub. Try to keep the Steri-Strips dry for at least 24 hours. Do not soak your wounds in a bathtub or swimming pool. Monitor for signs of infection like swelling, redness, discolored odorous drainage. Return for signs of infection, severe headache, dizziness, vision changes, abnormal behavior, difficulty with normal activities, or any other new, concerning, or worsening symptoms. All discharge instructions reviewed with patient and/or family. Voiced understanding. ATTENDING PHYSICIAN NOTE: I was physically present as attending physician in the emergency department during the care of this patient, but I was not directly involved in the decision making or delivery of care for this patient. (CARMELA VALVERDE MD) DOLORES SLAUGHTER APRN Jul 26, 2022 13:06 CARMELA VALVERDE MD Jul 30, 2022 13:29
[2022-07-26] MEDS ORDERED: ACETAMINOPHEN 500 MG TAB (TYLENOL) PO ONE (13:15)
--- NOTE | 2022-07-26 13:30 | Diagnostic Imaging Report ---
PROCEDURE: CT head and CT cervical spine without contrast. TECHNIQUE: Multiple contiguous axial images were obtained through the brain and cervical spine without the use of intravenous contrast. Sagittal and coronal reformations through the cervical spine were then performed. Auto Exposure Controls were utilized during the CT exam to meet ALARA standards for radiation dose reduction. INDICATION: Head and neck trauma COMPARISON: 08/30/2017 FINDINGS: Head: No hyperdense hemorrhage or space-occupying mass. No hydrocephalus or midline shift. No evidence of territorial infarct. Basilar cisterns are patent. Global cerebral atrophy is unchanged. No focal scalp swelling. No skull fracture. The paranasal sinuses and mastoid air cells are clear. Cervical spine: No acute fracture or traumatic malalignment. Multilevel degenerative changes cause no more than mild spinal canal stenosis. There very degrees of mild to severe foraminal stenoses due to facet and uncovertebral joint hypertrophy. Airway is patent. No cervical lymphadenopathy. Visualized thyroid is normal. IMPRESSION: 1. No acute intracranial process or skull fracture. 2. No acute fracture or traumatic malalignment of the cervical spine. Dictated by: Dictated on workstation # [id number]
--- NOTE | 2022-07-26 14:02 | Diagnostic Imaging Report ---
PROCEDURE: CT maxillofacial without contrast. TECHNIQUE: Multiple contiguous axial images were obtained through the facial bones without the use of intravenous contrast. Auto Exposure Controls were utilized during the CT exam to meet ALARA standards for radiation dose reduction. INDICATION: Fall. Facial bruising. Face pain. COMPARISON: None. FINDINGS: No acute facial fractures. The mandible, zygomatic arches, and pterygoid plates are intact. The nasal bones and nasal septum demonstrate no acute fracture. The paranasal sinuses and mastoid air cells are clear. The globes and orbits are unremarkable. The included intracranial contents have a normal appearance. The mastoid air cells are well pneumatized. Small amount of soft tissue edema is seen overlying the right maxilla. No evidence of fluid collection or mass. IMPRESSION: 1. No acute facial fractures. 2. Small amount of edema overlying the right maxilla. Dictated by: Dictated on workstation # [id number]
[2022-07-26 14:24] VITALS: BP 126/82
== END 2022-07-26 14:24 | disposition home or self-care (01) ==
LOC: EDUNIT# 12:35 → ER 12:38
DX: S09.90XA Unspecified injury of head, initial encounter (principal); S01.511A Laceration without foreign body of lip, initial encounter; S61.511A Laceration without foreign body of right wrist, initial encounter; Z79.82 Long term (current) use of aspirin; W18.39XA Other fall on same level, initial encounter; W22.8XXA Striking against or struck by other objects, initial encounter
CPT/HCPCS: 12011; 70450; 70486; 72125

== ENCOUNTER 2022-08-01 07:18 | Emergency (ER) | payer MEDICARE ==
[~2022-08-01] VITALS: Ht 160 cm; Wt 65.7 kg
[2022-08-01 07:46] VITALS: BP 132/75
== END 2022-08-01 07:46 | disposition home or self-care (01) ==
LOC: EDUNIT# 07:18 → ER 07:20
DX: Z48.02 Encounter for removal of sutures (principal)

== ENCOUNTER → 2022-08-01 | Outpatient (CLI) | payer MEDICARE ==
--- NOTE | 2022-08-01 09:23 | Diagnostic Imaging Report ---
INDICATION: LUMBAR RADICULOPATHY, RIGHT-SIDED PAIN TECHNIQUE: AP, Lateral and Spot imaging of the lumbar spine CORRELATION STUDY: None FINDINGS: Moderate rightward curvature superior lumbar spine, apex L2. Alignment otherwise anatomic. Lumbar vertebral body heights are maintained. Endplate lipping is noted. Moderate marked disc space narrowing is noted at multiple levels, most pronounced at the L2-L3 level where there is more prominent endplate sclerosis and osteophyte formation. Less severe narrowing at L1-L2, L3-L4, and L4-L5. There is also moderate narrowing at the L5-S1 level. Prominent asymmetric hypertrophic changes of the facets on the right L5-S1. SI joints unremarkable. Cholecystectomy clips in the right upper quadrant. Vascular calcification abdominal aorta. IMPRESSION: Negative acute bony abnormality about the lumbar spine. No acute-appearing compression deformity. Advanced degenerative disc disease at multiple levels. Most severe at the L2-L3 level, likely owing to rightward curvature. Dictated by: Dictated on workstation # [id number]
== END ==
LOC: RAD 07:00
PROVIDERS: ATTEND Physician Assistant
DX: M51.16 Intervertebral disc disorders with radiculopathy, lumbar region (principal)
CPT/HCPCS: 72100

== ENCOUNTER → 2022-09-21 | Outpatient (CLI) | payer MEDICARE ==
--- NOTE | 2022-09-21 16:23 | Diagnostic Imaging Report ---
PROCEDURE: MRI lumbar spine without contrast. TECHNIQUE: Multiplanar, multisequence MRI of the lumbar spine was performed without contrast. INDICATION: Chronic back pain with right leg radiculopathy. COMPARISON: 08/01/2022. FINDINGS: Five lumbar type vertebral bodies are visualized with the last well-formed disc space designated L5-S1. No acute fracture or dislocation is seen in the lumbar spine. There is right convexity curvature of the thoracolumbar spine. There is mild right lateral subluxation of L2 on L3. Grade 1 anterolisthesis of L5 on S1 is noted. Vertebral body heights are well-maintained. The bone marrow signal is normal. The conus terminates at the L1 level. No mass is seen associated with the conus or nerve roots of the cauda equina. No epidural collection is identified. Multilevel degenerative changes are seen in the lumbar spine with disc bulges, facet hypertrophy and buckling of the ligamentum flavum. T12-L1: No significant spinal canal or foraminal stenosis. L1-L2: No significant spinal canal or foraminal stenosis. L2-L3: Broad-based disc bulge, facet hypertrophy and buckling of the ligamentum flavum results in mild to moderate spinal canal narrowing and moderate right and mild left foraminal stenosis. L3-L4: Facet hypertrophy and buckling of the ligamentum flavum results in mild spinal canal narrowing and mild bilateral foraminal narrowing. L4-L5: Broad-based disc bulge, facet hypertrophy and buckling of the ligamentum flavum results in moderate to severe spinal canal stenosis and moderate right and evou-or-dwdvwrdg left foraminal narrowing. L5-S1: Broad-based disc bulge, facet hypertrophy and buckling of the ligamentum flavum results in moderate spinal canal stenosis and moderate bilateral foraminal stenosis. Paravertebral soft tissues are unremarkable. IMPRESSION: 1. No acute fracture or dislocation in the lumbar spine. 2. Multilevel degenerative changes in the lumbar spine, greatest at L4-L5 and L5-S1. 3. Grade 1 anterolisthesis of L5 on S1. There is also right lateral subluxation of L2 on L3 with right convexity curvature of the thoracolumbar spine. Dictated by: Dictated on workstation # [id number]
== END ==
LOC: RAD 13:44
PROVIDERS: ATTEND Physician Assistant
DX: M47.26 Other spondylosis with radiculopathy, lumbar region (principal); M47.27 Other spondylosis with radiculopathy, lumbosacral region; M43.17 Spondylolisthesis, lumbosacral region
CPT/HCPCS: 72148

== ENCOUNTER → 2022-10-10 | Outpatient (CLI) | payer MEDICARE ==
[~2022-10-10] VITALS: Ht 160 cm; Wt 66.2 kg
[~2022-10-10] MED LIST changes: +DENOSUMAB 60 MG/1 ML (PROLIA) SQ SCH
[2022-10-10 11:55] VITALS: BP 138/78
== END ==
LOC: SDC 11:19
PROVIDERS: ATTEND Family Medicine
DX: M81.0 Age-related osteoporosis without current pathological fracture (principal)
CPT/HCPCS: 96372

== ENCOUNTER 2022-12-13 08:00 | Outpatient (RCR) | payer MEDICARE ==
[~2022-12-13 08:00] MED LIST changes: -DENOSUMAB 60 MG/1 ML (PROLIA) SQ SCH
== END 2022-12-18 | disposition home or self-care (01) ==
PROVIDERS: ATTEND Physician Assistant
DX: M48.062 Spinal stenosis, lumbar region with neurogenic claudication (principal); M41.50 Other secondary scoliosis, site unspecified

== ENCOUNTER → 2022-12-19 | Outpatient (CLI) | payer MEDICARE ==
--- NOTE | 2022-12-19 11:36 | Diagnostic Imaging Report ---
INDICATION: Routine screening. COMPARISON: Prior mammograms of 11/28/2021 and 11/18/2020. TECHNIQUE: 2D and 3D bilateral screening mammography was performed with CAD. FINDINGS: Scattered fibroglandular densities are identified bilaterally. The breast parenchyma appears stable. There appears to be a biopsy clip in the left breast. There are benign calcifications. No mass or malignant-appearing microcalcifications are identified. The axillae are unremarkable. IMPRESSION: No mammographic features suspicious for malignancy are identified. ACR BI-RADS Category 2: Benign findings. Result letter will be mailed to the patient. Note: At least 10% of breast cancer is not imaged by mammography. Dictated by: Dictated on workstation # [id number]
== END ==
LOC: RAD 09:54
PROVIDERS: ATTEND Family Medicine
DX: Z12.31 Encounter for screening mammogram for malignant neoplasm of breast (principal)
CPT/HCPCS: 77063; 77067

== ENCOUNTER 2022-12-21 09:38 | Outpatient (RCR) | payer MEDICARE | END 2022-12-21 10:45 | disposition home or self-care (01) | PROVIDERS: ATTEND Physician Assistant | DX: M48.062 Spinal stenosis, lumbar region with neurogenic claudication (principal); M41.50 Other secondary scoliosis, site unspecified ==